=== PATIENT | male | born 1950 | race Caucasian/White ===

== ENCOUNTER 2016-12-18 12:25 | Inpatient (IN) | payer OTHER ==
[2016-12-18 13:19] LABS: BASOPHILS 0.4 % (0-2); EOSINOPHILS 2.8 % (0-7); HEMATOCRIT 36.2 % (42.0-54.0); HEMOGLOBIN 12.2 g/dL (13.5-17.5); IMMATURE GRANULOCYTES 1.1 % (0-5); LYMPHOCYTES 30.5 % (15-50); MCH 29.4 pg (26.0-34.0); MCHC 33.7 g/dL (31.0-37.0); MCV 87.2 fL (80.0-100.0); MEAN PLATELET VOLUME 9.3 fL (7.4-10.4); MONOCYTES 8.2 % (2-11); RBC 4.15 10x6/uL (4.20-6.10); RDW 14.3 % (11.5-14.5); WBC 7.4 10x3/uL (4.8-10.8)
[2016-12-18 13:22] LABS: PLATELET COUNT 190 10x3/uL (130-400)
[2016-12-18 13:37] LABS: ALBUMIN 4.2 g/dL (3.4-5.0); ALKALINE PHOSPHATASE 81 U/L (46-116); ALT (SGPT) 41 U/L (10-68); BILIRUBIN - TOTAL 0.32 mg/dL (0.2-1.3); CALC OSMOLALITY 267 mosm/kg (275-300); CALCIUM 9.7 mg/dL (8.5-10.1); CARBON DIOXIDE 25.9 mmol/L (21.0-32.0); CHLORIDE - SERUM 96 mmol/L (98-107); CREATININE - SERUM 1.3 mg/dL (0.6-1.3); GLUCOSE 104 mg/dL (74-106); PROTEIN - SERUM 7.9 g/dL (6.4-8.2); SODIUM 133 mmol/L (136-145); UREA NITROGEN 18 mg/dL (7-18); eGFR NON AFRICAN AMERICAN 59 mL/min (90-120)
[2016-12-18 13:56] LABS: CHOL - HDL RATIO 4.6 ratio (2.3-4.9); CHOLESTEROL, TOTAL 191 mg/dL (0-200); CREATINE KINASE 192 UL (21-232); HDL CHOLESTEROL 42 mg/dL (32-96); LDL CHOLESTEROL 105 mg/dL (0-100); LDL-HDL RATIO 2.5 ratio (1.5-3.5); TRIGLYCERIDE 223 mg/dL (30-200)
[2016-12-18 14:00] LABS: TROPONIN-I < 0.017 ng/mL (0.000-0.060)
[2016-12-18 16:13] LABS: CREATINE KINASE 366 UL (21-232); TROPONIN-I < 0.017 ng/mL (0.000-0.060)
[2016-12-18 16:14] LABS: CKMB 4.2 U/L (0.0-3.6)
[2016-12-18] MEDS ORDERED: PROAIR HFA8.5 GM INH (18:27)
[2016-12-18] MEDS ORDERED: NORVASC10 MG PO (18:28)
[2016-12-18] MEDS ORDERED: ASPIRIN325 MG PO (18:28)
[2016-12-18] MEDS ORDERED: LIPITOR40 MG PO (18:29)
[2016-12-18] MEDS ORDERED: COLACE100 MG PO (18:29)
[2016-12-18] MEDS ORDERED: MUCUS RELIEF400 MG PO (18:30)
[2016-12-18] MEDS ORDERED: TRICOR145 MG PO (18:30)
[2016-12-18] MEDS ORDERED: SYNTHROID50 MCG PO (18:31)
[2016-12-18] MEDS ORDERED: LITHIUM CARBON300 MG PO (18:32)
[2016-12-18] MEDS ORDERED: METOPROLOL TAR100 M1 PO (18:32)
[2016-12-18] MEDS ORDERED: OMEPRAZOLE20 M1 PO (18:33)
[2016-12-18] MEDS ORDERED: HYTRIN5 MG PO (18:33)
[2016-12-18] MEDS ORDERED: REMERON30 MG PO (18:33)
[2016-12-18] MEDS ORDERED: SPIRIVA18 MCG INH (18:34)
[2016-12-18] MEDS ORDERED: XANAX1 MG PO (18:35)
[2016-12-18 21:29] LABS: CKMB 3.7 U/L (0.0-3.6)
[2016-12-18 21:32] LABS: CREATINE KINASE 721 UL (21-232); TROPONIN-I 0.016 ng/mL (0.000-0.060)
[2016-12-19 04:38] LABS: CREATINE KINASE 706 UL (21-232)
[2016-12-19 04:40] LABS: TROPONIN-I < 0.017 ng/mL (0.000-0.060)
[2016-12-19] MEDS ORDERED: FUROSEMIDE20 MG PO (12:16)
[2016-12-19] MEDS ORDERED: MYSOLINE 50 MG50 MG PO (12:17)
[2016-12-19] MEDS ORDERED: COZAAR100 MG PO (12:17)
[2016-12-19] MEDS ORDERED: CO Q-10400 MG PO (12:18)
[2016-12-19] MEDS ORDERED: CENTRUM SILVER1 TA1 PO (12:19)
[2016-12-19 16:56] LABS: % SATURATION 16 % (15-55); IRON 65 ug/dl (35-150); TOTAL IRON BIND CAPACITY 396 ug/dl (260-445); UNSAT IRON BIND CAPACITY 331 ug/dl (150-375)
[2016-12-20 05:46] LABS: BASOPHILS 0.3 % (0-2); EOSINOPHILS 1.6 % (0-7); HEMOGLOBIN 10.8 g/dL (13.5-17.5); IMMATURE GRANULOCYTES 0.5 % (0-5); LYMPHOCYTES 25.7 % (15-50); MCHC 32.7 g/dL (31.0-37.0); MCV 88.7 fL (80.0-100.0); MEAN PLATELET VOLUME 8.6 fL (7.4-10.4); MONOCYTES 10.3 % (2-11); NEUTROPHILS 61.6 % (40-80); PLATELET COUNT 224 10x3/uL (130-400); RBC 3.72 10x6/uL (4.20-6.10); RDW 14.5 % (11.5-14.5); WBC 6.4 10x3/uL (4.8-10.8)
[2016-12-20 06:11] LABS: ANION GAP 14.4 mmol/L (8-16); CALCIUM 9.4 mg/dL (8.5-10.1); CARBON DIOXIDE 25.8 mmol/L (21.0-32.0); CREATININE - SERUM 1.5 mg/dL (0.6-1.3); MAGNESIUM - SERUM 1.9 mg/dL (1.8-2.4); PHOSPHOROUS 2.9 mg/dL (2.5-4.9); POTASSIUM - SERUM 3.2 mmol/L (3.5-5.1)
[2016-12-21 06:07] LABS: BASOPHILS 0.3 % (0-2); EOSINOPHILS 3.4 % (0-7); HEMATOCRIT 34.8 % (42.0-54.0); HEMOGLOBIN 11.4 g/dL (13.5-17.5); IMMATURE GRANULOCYTES 0.4 % (0-5); LYMPHOCYTES 28.7 % (15-50); MCH 29.4 pg (26.0-34.0); MCHC 32.8 g/dL (31.0-37.0); MCV 89.7 fL (80.0-100.0); MEAN PLATELET VOLUME 8.8 fL (7.4-10.4); MONOCYTES 8.2 % (2-11); PLATELET COUNT 231 10x3/uL (130-400); RBC 3.88 10x6/uL (4.20-6.10); RDW 14.5 % (11.5-14.5); WBC 7.7 10x3/uL (4.8-10.8)
[2016-12-21 06:23] LABS: ANION GAP 13.3 mmol/L (8-16); CALCIUM 9.6 mg/dL (8.5-10.1); CARBON DIOXIDE 26.2 mmol/L (21.0-32.0); CREATININE - SERUM 1.8 mg/dL (0.6-1.3); PHOSPHOROUS 3.6 mg/dL (2.5-4.9); POTASSIUM - SERUM 3.5 mmol/L (3.5-5.1)
[2016-12-21 09:17] LABS: FOLATE (FOLIC ACID) - SERUM 16.1 ng/mL (>3.0)
[2016-12-22 05:23] LABS: BASOPHILS 0.5 % (0-2); EOSINOPHILS 4.1 % (0-7); IMMATURE GRANULOCYTES 0.3 % (0-5); LYMPHOCYTES 26.4 % (15-50); MCH 29.7 pg (26.0-34.0); MCHC 33.3 g/dL (31.0-37.0); MCV 89.2 fL (80.0-100.0); MEAN PLATELET VOLUME 8.7 fL (7.4-10.4); NEUTROPHILS 60.7 % (40-80); PLATELET COUNT 206 10x3/uL (130-400); RDW 14.4 % (11.5-14.5); WBC 5.9 10x3/uL (4.8-10.8)
[2016-12-22 05:39] LABS: ANION GAP 7.5 mmol/L (8-16); CALCIUM 9.3 mg/dL (8.5-10.1); CARBON DIOXIDE 29.1 mmol/L (21.0-32.0); CREATININE - SERUM 1.7 mg/dL (0.6-1.3); PHOSPHOROUS 3.7 mg/dL (2.5-4.9); POTASSIUM - SERUM 3.6 mmol/L (3.5-5.1)
[2016-12-22] MEDS ORDERED: COZAAR50 MG PO (11:55)
[2016-12-22] MEDS ORDERED: TERAZOSIN HCL2 MG PO (11:55)
[2016-12-22] MEDS ORDERED: K-DUR20 MEQ PO (11:56)
== END 2016-12-22 16:00 | disposition home or self-care (01) | DRG 287 ==
LOC: D.ER 12:25 → D.M2 15:35
PROVIDERS: Emergency Medicine; ADMIT Family Medicine
PROC: B2111ZZ Fluoroscopy of Multiple Coronary Arteries using Low Osmolar Contrast (ICD-10-PCS; principal; 2016-12-19)
PROC: B2151ZZ Fluoroscopy of Left Heart using Low Osmolar Contrast (ICD-10-PCS; 2016-12-19)
PROC: 4A023N7 Measurement of Cardiac Sampling and Pressure, Left Heart, Percutaneous Approach (ICD-10-PCS; 2016-12-19)
DX: I25.110 Atherosclerotic heart disease of native coronary artery with unstable angina pectoris (principal); I16.0 Hypertensive urgency; E11.9 Type 2 diabetes mellitus without complications; F31.9 Bipolar disorder, unspecified; E03.9 Hypothyroidism, unspecified; D64.9 Anemia, unspecified; Z87.891 Personal history of nicotine dependence

== ENCOUNTER 2017-08-08 11:54 | Inpatient (IN) | payer MEDICARE ==
[~2017-08-08] VITALS: Ht 170.2 cm; Wt 94.3 kg
[2017-08-08] VITALS (11 sets, daily range): BP systolic 125–187; BP diastolic 48–104; BMI 33.6
[~2017-08-08 11:54] MED LIST: ASPIRIN325 MG PO; CENTRUM SILVER1 TA1 PO; CO Q-10400 MG PO; COLACE100 MG PO; COZAAR100 MG PO; COZAAR50 MG PO; FUROSEMIDE20 MG PO; HYTRIN5 MG PO; K-DUR20 MEQ PO; LIPITOR40 MG PO; LITHIUM CARBON300 MG PO; METOPROLOL TAR100 M1 PO; MUCUS RELIEF400 MG PO; MYSOLINE 50 MG50 MG PO; NORVASC10 MG PO; OMEPRAZOLE20 M1 PO; PROAIR HFA8.5 GM INH; REMERON30 MG PO; SPIRIVA18 MCG INH; SYNTHROID50 MCG PO; TERAZOSIN HCL2 MG PO; TRICOR145 MG PO; XANAX1 MG PO
[2017-08-08 13:20] LABS: BASOPHILS 0.3 % (0-2); EOSINOPHILS 2.3 % (0-7); HEMATOCRIT 32.9 % (42.0-54.0); HEMOGLOBIN 11.2 g/dL (13.5-17.5); IMMATURE GRANULOCYTES 0.8 % (0-5); LYMPHOCYTES 33.8 % (15-50); MCV 88.2 fL (80.0-100.0); MEAN PLATELET VOLUME 8.6 fL (7.4-10.4); MONOCYTES 8.8 % (2-11); PLATELET COUNT 223 10x3/uL (130-400); RBC 3.73 10x6/uL (4.20-6.10); RDW 13.8 % (11.5-14.5)
[2017-08-08 13:40] LABS: ALKALINE PHOSPHATASE 61 U/L (46-116); ALT (SGPT) 34 U/L (10-68); BILIRUBIN - TOTAL 0.35 mg/dL (0.2-1.3); CALC OSMOLALITY 280 mosm/kg (275-300); CALCIUM 9.5 mg/dL (8.5-10.1); CARBON DIOXIDE 26.9 mmol/L (21.0-32.0); CHLORIDE - SERUM 104 mmol/L (98-107); CREATININE - SERUM 1.6 mg/dL (0.6-1.3); GLUCOSE 100 mg/dL (74-106); POTASSIUM - SERUM 3.3 mmol/L (3.5-5.1); PROTEIN - SERUM 7.4 g/dL (6.4-8.2); SODIUM 139 mmol/L (136-145); UREA NITROGEN 22 mg/dL (7-18); eGFR NON AFRICAN AMERICAN 46 mL/min (90-120)
[2017-08-08 13:50] LABS: CKMB 1.6 U/L (0.0-3.6); CREATINE KINASE 104 UL (21-232); TROPONIN-I < 0.017 ng/mL (0.000-0.060)
--- NOTE | 2017-08-08 21:00 | NUR ---
PT ARRIVED, BP 189/99 NITRO INCREASED TO 4MCG/KG/MIN WILL REASSESS. PT C/O OF CHEST PAIN 8/10 RADIATING TO BACK BETWEEN SHOULDERS. EKG ADM, NO NEW FINDINGS SINUS TACK. MORPHINE PRN ADM FOR CHEST PAIN. STATES MINIMAL RELIEF. BP NOW 165/87 WILL CONTINUE TO MONITOR
--- NOTE | 2017-08-08 23:10 | NUR ---
FAMILY AT BEDSIDE. GIVEN UPDATE.
[2017-08-09] VITALS (54 sets, daily range): BP systolic 95–220; BP diastolic 43–117; Ht 170.2 cm; Wt 94.3 kg
--- NOTE | 2017-08-09 00:34 | NUR ---
ASSISTED WITH URINAL 350 CC ALEN URINE NOTED.
--- NOTE | 2017-08-09 01:00 | NUR ---
PT RESTING COMFORTABLY AT THIS TIME, DENIES ANY NEEDS OR WANTS, WILL CON'T TO MONITOR
--- NOTE | 2017-08-09 03:29 | NUR ---
REASSESSMENT COMPLETE PER FLOW SHEET. VSS. NONEW CHANGES. WILL CONTINUE TO MONITOR
[2017-08-09 04:49] LABS: BASOPHILS 0 % (0-2); EOSINOPHILS 0 % (0-7); HEMOGLOBIN 13.3 g/dL (13.5-17.5); IMMATURE GRANULOCYTES 0.9 % (0-5); LYMPHOCYTES 6.2 % (15-50); MCH 29.1 pg (26.0-34.0); MCHC 33.3 g/dL (31.0-37.0); MCV 87.5 fL (80.0-100.0); MEAN PLATELET VOLUME 8.8 fL (7.4-10.4); MONOCYTES 4.7 % (2-11); NEUTROPHILS 88.2 % (40-80); RDW 13.8 % (11.5-14.5)
[2017-08-09 04:56] LABS: PLATELET COUNT 393 10x3/uL (130-400); RBC 4.57 10x6/uL (4.20-6.10); WBC 13.8 10x3/uL (4.8-10.8)
[2017-08-09 05:15] LABS: ALKALINE PHOSPHATASE 58 U/L (46-116); BILIRUBIN - TOTAL 0.54 mg/dL (0.2-1.3); CALCIUM 8.2 mg/dL (8.5-10.1); CARBON DIOXIDE 24.1 mmol/L (21.0-32.0); CHLORIDE - SERUM 103 mmol/L (98-107); PROTEIN - SERUM 6.2 g/dL (6.4-8.2); SODIUM 134 mmol/L (136-145); UREA NITROGEN 26 mg/dL (7-18)
[2017-08-09 05:20] LABS: ALBUMIN 2.3 g/dL (3.4-5.0); ALT (SGPT) 52 U/L (10-68); CALC OSMOLALITY 277 mosm/kg (275-300); CREATININE - SERUM 0.8 mg/dL (0.6-1.3); GLUCOSE 184 mg/dL (74-106); POTASSIUM - SERUM 4.9 mmol/L (3.5-5.1); eGFR NON AFRICAN AMERICAN > 90 mL/min (90-120)
--- NOTE | 2017-08-09 07:00 | NUR ---
REPORT RECEIVED FROM OFF GOING RN. SEE ASSESMENT IN FLOW SHEET. PT VERY TALKATIVE AND FIDGITY. SPB 170-180. ON NITROPINE PER ORDRES. DENIES PAIN AT THIS TIME. DESCRIBED PAIN LAST NIGHT PRESSURE ON HIS CHEST. DENIES NEEDS AT THIS TIME. CALL LIGHT IN REACH. WILL CONT POC
--- NOTE | 2017-08-09 07:24 | NUR ---
SPOKE WITH DR MIRZA. HE STATED ITS OK TO STOP THE VASOPRESSIN IF IT IS OK WITH IR.
--- NOTE | 2017-08-09 09:00 | NUR ---
DR RAMOS STATED ONCE PT IS OFF NIPRIDE AND BP IS STABLE ON PO MEDS, OK TO TRANSFER TO FLOOR.
--- NOTE | 2017-08-09 10:19 | NUR ---
WENT OVER ALLERGIES BEFORE MED PASS, PT ALLERGIC TO [facility]. DR RAMOS NOTIFIED AND [facility] DC. WHILE TALKING WITH PT, PT WAS VERY TALKATIVE AND FIDGITY. STATED HE WAS A VERY ANXIOUS PERSON ESPICIALLY AT HIS HOUSE. HE SPOKE ABOUT HIS TIME IN [place] WHILE HE WAS IN THE AND HE TALKED ABOUT HOW HE WATCHED PEOPLE BE KILLED WHILE HE WAS OVER THERE IN A [place]. HE STATES HE SEES A PHYCHIATRIST BUT HE DOES NOT REMEMBER WHAT THEIR NAME IS. BEFORE MEDPASS, HIS BP WAS 154/98. AFTER CONVERSATION AND PO MED WHERE TAKEN, HIS BP RISED TO 179/110. PRN XANAX GIVEN AND HIS ROUTINE BP MEDICATION WAS ADMINISTERED. HIS SISTER WAS AT BEDSIDE THIS WHOLE TIME. ONCE SISTER LEFT, HE STATED THAT SOMETIMES HIS BP RISES BECAUSE "MY SISTER CARES FOR ME ALOT. BUT SOMETIMES SHE IS OVERBEARING AND MAKES MY BP RISE.". PT REMAINS ON NIPRIDE PER ORDRES. WILL TITRATE DOWN PER ORDERS.
--- NOTE | 2017-08-09 10:48 | NUR ---
PT IN BED RESTING. NO FAMILY AT BEDSIDE. PT BREATHING NORMALLY AND UNLABORED. BP 136/94. NITROPINE TITRATED OFF PER ORDRES. WILL CONT POC
--- NOTE | 2017-08-09 11:39 | NUR ---
NITRPINE REMAINS OFF. BP 184/100. PRN PO HYDRALAZINE GIVEN.
--- NOTE | 2017-08-09 12:59 | NUR ---
UA COLLECTED. SENT TO LAB. SISTER AT BED SIDE. NO C/O ANXIETY AT THIS TIME.
--- NOTE | 2017-08-09 13:10 | NUR ---
LEFT BEDSIDE. ATTEMPTED TO GIVE PT NEW LUNCH TRAY. PT REFUSED.
--- NOTE | 2017-08-09 13:15 | NUR ---
SISTER AT BED SIDE. REMAINS OFF NITROPIME. BP 165/79
--- NOTE | 2017-08-09 13:35 | NUR ---
AT BEDSIDE FEEDING PT MASHED POTATOES FROM [employer]
[2017-08-09 14:09] LABS: APPEARANCE CLEAR (CLEAR); BACTERIA FEW /hpf (NONE SEEN); BILIRUBIN NEGATIVE (NEGATIVE); COLOR YELLOW (YELLOW); EPITHELIAL CELLS RARE /hpf (0-5); GLUCOSE NEGATIVE (NEGATIVE); KETONE NEGATIVE (NEGATIVE); NITRITE NEGATIVE (NEGATIVE); PROTEIN 1+ mg/dL (NEGATIVE); RED CELLS - URINE RARE /hpf (0-5); SPERMATOZOA PRESENT /hpf (NONE SEEN); UROBILINOGEN NORMAL (NORMAL); WHITE CELLS - URINE RARE /hpf (0-5)
--- NOTE | 2017-08-09 14:35 | NUR ---
BP 168/88. PT RESTING IN BED WITH EYES CLOSED WITH NO S/SX OF DISTRESS/DISCOMFORT. BREATHING NORMAL AND UNLABORED. NO FAMILY AT BED SIDE
--- NOTE | 2017-08-09 16:30 | NUR ---
BP WAS 160/78. DR ADAN ROUNDED AND WAS AT PT'S BEDSIDE WHENEVER HIS BP JUMPED TO 189/110. HYDRALAZINE GIVEN. DR ADAN ADJUSTED BP MEDICATION.
--- NOTE | 2017-08-09 19:19 | NUR ---
REPORT RECIEVED. ASSESSMENT COMPLETE PER FLOW SHEET. VSS. ASSISTED WITH URINAL 500 CC ALEN URINE VOID NOTED. DENIES FURTHER NEEDS.W ILL CONTINUE TO MONITOR
--- NOTE | 2017-08-09 23:10 | NUR ---
NO NEW CHANGES AT THIS TIME. VSS. PT SLEEPING COMFORTABLY WILL CONTINUE TO MONITOR
[2017-08-10] VITALS (8 sets, daily range): BP systolic 150–214; BP diastolic 87–119
[2017-08-10 05:42] LABS: BASOPHILS 0.3 % (0-2); EOSINOPHILS 2.1 % (0-7); IMMATURE GRANULOCYTES 0.5 % (0-5); LYMPHOCYTES 26.8 % (15-50); MCH 29.9 pg (26.0-34.0); MCHC 33.2 g/dL (31.0-37.0); MEAN PLATELET VOLUME 8.8 fL (7.4-10.4); MONOCYTES 9.5 % (2-11); NEUTROPHILS 60.8 % (40-80); RDW 14.3 % (11.5-14.5)
[2017-08-10 05:45] LABS: HEMOGLOBIN 10.3 g/dL (13.5-17.5); RBC 3.44 10x6/uL (4.20-6.10); WBC 6.1 10x3/uL (4.8-10.8)
[2017-08-10 05:46] LABS: MCV 90.1 fL (80.0-100.0); PLATELET COUNT 219 10x3/uL (130-400)
[2017-08-10 06:35] LABS: ANION GAP 12.5 mmol/L (8-16); CALCIUM 9.7 mg/dL (8.5-10.1); CARBON DIOXIDE 25.8 mmol/L (21.0-32.0)
[2017-08-10 06:36] LABS: CREATININE - SERUM 1.8 mg/dL (0.6-1.3); POTASSIUM - SERUM 3.3 mmol/L (3.5-5.1)
--- NOTE | 2017-08-10 07:15 | NUR ---
PT ALERT AND OREINTED VSS, DENIES PAIN, R WRIST PIV SALINE LOCK, USES URINAL, TURNS AND REPOSITIONS SELF, SEE SHIFT ASSESSMENT
--- NOTE | 2017-08-10 09:17 | NUR ---
TOOK AM MEDS WITHOUT DIFFICULTY, PRN XANAX FOR ANXIETY WAS EFFECIVE
--- NOTE | 2017-08-10 11:07 | NUR ---
PT DENIES PAIN AND ALL NEEDS, BP SYSTOLIC IN 150-160S, ABLE TO REPOSITION SELF, CALL LIGHT AND FLUIDS WITHIN REACH
--- NOTE | 2017-08-10 11:56 | NUR ---
REPORT CALLED TO TASIA PT WILL TRANSFER TO ROOM 3949
--- NOTE | 2017-08-10 12:31 | NUR ---
PT TRANSFERRED TO ROOM 2132
--- NOTE | 2017-08-10 12:59 | NUR ---
PT ARRIVED TO UNIT VIA WHEELCHAIR BY ICU NURSE. THIS NURSE PREVIOUSLY RECEIVED REPORT FROM DELIA IN ICU. PT IS ALERT AND ORIENTED. ON 02 AT 2L VIA NC. IV SEEN TO RIGHT FOREARM AREA THAT IS CURRENTLY SALINE LOCKED. RUL IS CLEAR ON AUSCULTATION. [place] HAS SLIGHT EX WHEEZE. BILATERAL LL ARE CLEAR. PT STATES HE GETS SOB ON EXERTION AT TIMES. WILL DO QUICKSTART PER POLICY. SISTER IS AT BEDSIDE. WILL CONTINUE TO MONITOR.
--- NOTE | 2017-08-10 16:24 | NUR ---
DR. ROSA ON UNIT. INFORMED HER OF PTS LATEST B/P. NEW ORDERS RECEIVED.
--- NOTE | 2017-08-10 18:18 | NUR ---
PT IS CURRENTLY SITTING UP IN BED WITH EYES OPEN RESTING. SISTER IS AT BEDSIDE. PT DENIES ANY NEED AT THIS TIME. WILL CONTINUE TO MONITOR.
[2017-08-11 00:36] VITALS: BP 180/67
--- NOTE | 2017-08-11 01:16 | NUR ---
PT RESTING WITH EYES CLOSED. RESP EVEN AND REGULAR. SR UP X2, CALL LIGHT WITHIN REACH.
[2017-08-11 05:11] VITALS: BP 187/84
--- NOTE | 2017-08-11 06:44 | NUR ---
AM ROUNDING- RECEIVED REPORT FROM TRUCK MANAGER NURSE EUSEBIA. PT IS CURRENTLY SITTING UP IN BED WITH EYES OPEN RESTING. ON 02 AT 2L VIA NC. IV SEEN TO RIGHT WRIST THAT IS CURRENTLY SALINE LOCKED. NO NEED AT THIS CURRENT TIME. WILL CONTINUE TO MONITOR AND CONTINUE WITH PLAN OF CARE.
[2017-08-11 09:19] VITALS: BP 182/94
--- NOTE | 2017-08-11 09:28 | NUR ---
FRANCISCO JAVIER LOMAX CAME TO INFORM ME THAT PTS BLOOD PRESSURE IS 215/107. THIS NURSE GOES TO CHECK ON PT. PT IS SITTING UP IN BED WITH EYES OPEN RESTING. PT ISN'T C/O ANY DISTRESS. PT GIVEN PRN APRESOLINE ORDERED. BLOOD PRESSURE RECHECKED WHILE IN ROOM AND IS NOW 179/81. WILL CONTINUE TO MONITOR.
[2017-08-11 11:18] LABS: BASOPHILS 0.3 % (0-2); EOSINOPHILS 3.7 % (0-7); HEMATOCRIT 31.6 % (42.0-54.0); HEMOGLOBIN 10.1 g/dL (13.5-17.5); IMMATURE GRANULOCYTES 0.5 % (0-5); LYMPHOCYTES 26.4 % (15-50); MCH 29.6 pg (26.0-34.0); MEAN PLATELET VOLUME 9.1 fL (7.4-10.4); MONOCYTES 9.4 % (2-11); NEUTROPHILS 59.7 % (40-80); RBC 3.41 10x6/uL (4.20-6.10); RDW 14.4 % (11.5-14.5); WBC 6.3 10x3/uL (4.8-10.8)
[2017-08-11 11:22] LABS: MCV 92.7 fL (80.0-100.0); PLATELET COUNT 167 10x3/uL (130-400)
[2017-08-11 11:54] LABS: ALBUMIN 3.6 g/dL (3.4-5.0); ANION GAP 10.4 mmol/L (8-16); BILIRUBIN - TOTAL 0.39 mg/dL (0.2-1.3); CALCIUM 9.4 mg/dL (8.5-10.1); CARBON DIOXIDE 26.9 mmol/L (21.0-32.0); CREATININE - SERUM 1.8 mg/dL (0.6-1.3); MAGNESIUM - SERUM 2.3 mg/dL (1.8-2.4); PHOSPHOROUS 3.5 mg/dL (2.5-4.9)
[2017-08-11 11:56] LABS: POTASSIUM - SERUM 4.3 mmol/L (3.5-5.1)
[2017-08-11 12:05] LABS: % SATURATION 16 % (15-55); IRON 56 ug/dl (35-150); TOTAL IRON BIND CAPACITY 346 ug/dl (260-445); UNSAT IRON BIND CAPACITY 290 ug/dl (150-375)
[2017-08-11 12:08] VITALS: BP 151/72
--- NOTE | 2017-08-11 14:50 | NUR ---
SPOKE WITH PT AND FAMILY AT BEDSIDE REGARDING VISIT THEY HAD FROM DR. ADAN AND MARCELO DUPREE. PT AND FAMILY ARE VERY UPSET DUE TO THE FACT THAT PT AND FAMILY FEEL LIKE DR. ADAN WAS NOT LISTENING TO THEM AND THEIR CONCERNS FOR PTS BLOOD PRESSURE STAYING HIGH. I DID SPEAK TO DR. ADAN WHILE IN ROOM MAKING ROUNDS AND CLARIFIED TO DR. ADAN THAT FAMILY IS WANTING TO GET PT ON THE RIGHT MEDICAION TO HELP CONTROL THE B/P. PT AND FAMILY ARE UPSET. PT DOES NOT WANT DR. ADAN BACK IN HIS ROOM. PT STATES HE LIKES DR. ORR AND BELIEVES HE CARES.
[2017-08-11 17:07] VITALS: BP 156/76
--- NOTE | 2017-08-11 17:23 | NUR ---
PT IS CURRENTLY SITTING UP IN CHAIR. SISTER AND SISTERS BOYFRIEND JUST GOT BACK INTO ROOM. NO NEED AT THIS CURRENT TIME. WILL CONTINUE TO MONITOR.
--- NOTE | 2017-08-11 19:49 | NUR ---
PATIENT IS INTENTLY REQUESTING XANEX WITH HIS NIGHT TIME MEDICATIONS. REPORTS THAT HE NEEDS IT TO SLEEP. FAMILY AT BEDSIDE, DENIES ANY PAIN AT THIS TIME. BED LOW, CALL LIGHT IN REACH.
[2017-08-11 21:08] VITALS: BP 167/90
[2017-08-12 01:27] VITALS: BP 139/75
[2017-08-12 06:51] VITALS: BP 154/73
--- NOTE | 2017-08-12 08:15 | NUR ---
AM ROUNDS COMPLETED INTRODUCED MYSELF TO PT PRIMARY RN FOR TODAYS SHIFT. PT A&O SITTING UP IN BED RESTING QUIETLY. PT IS HOPING TO BE DISCHARGED TODAY AND STATES HIS PROBLEMS HAVE RESOLVED. BP STABLE OVERNIGHT. WILL CPOC.
[2017-08-12 08:24] VITALS: BP 161/91
--- NOTE | 2017-08-12 11:17 | NUR ---
FSBS 123 NO ACTION REQUIRED PER SS INSULIN. PT SITTING UP IN BEDSIDE CHAIR AND IS WAITING ON HIS DOCTOR TO ROUND AND IS HOPING TO BE DISCHARGED TODAY. HTN SEEMS TO NOW BE CONTROLLED OVERNIGHT READINGS WERE CONTROLLED AND CURRENT BP IS 161/91 WILL DISCUSS WITH PRIMARY AND SEE ABOUT DISCHARGE.
[2017-08-12 12:11] VITALS: BP 145/75
--- NOTE | 2017-08-12 13:43 | NUR ---
PAGED ABOUT DISCHARGE PT IS ANXIOUS TO LEAVE AND GET HIS NEW MEDICATIONS FROM PHARMACY. PRIMARY IS HERE AND WILL PUT IN ORDERS. NO FURTHER NEEDS AT THIS TIME.
[2017-08-12] MEDS ORDERED: COZAAR50 MG PO (13:44)
[2017-08-12] MEDS ORDERED: CATAPRES-T1 PATCH.WK TRANSDERM (13:47)
[2017-08-12] MEDS ORDERED: HYDRALAZINE HCL50 MG PO (13:48)
[2017-08-12 17:02] VITALS: BP 153/75
--- NOTE | 2017-08-12 18:36 | NUR ---
STILL AWAITING PTS DISCHARGE PAPERS. PT EXTREMELY CONCERNED ABOUT NOT BEING ABLE TO MEDIA MANAGER HIS HTN MEDS UNTIL THE AM R/T HIS PHARMACY BEING CLOSED. WILL PROVIDE PT WITH HIS NIGHT BP EARLY AND GIVE THEM BEFORE HE IS DISCHARGE. PT VERBALIZED UNDERSTANDING AND VOICED THANKS. NO FURTHER NEEDS AT THIS TIME. WILL PASS ON IN SHIFT REPORT.
--- NOTE | 2017-08-12 19:20 | NUR ---
DISCHARGE TEACHING PROVIDED PAPERS SIGNED. MEDICATIONS REVIEWED IN GREAT DETAIL PT AND CAREGIVER HAVE BEEN VERY ANXIOUS ABOUT NEW MEDICATIONS. NIGHT MEDICATIONS GIVEN EARLY PT WOULD NOT BE ABLE TO VEHICLE OPERATOR TECHNICIAN OVERNIGHT R/T [facility] BEING CLOSED AND NIGHTSHIFT NURSE REFUSED TO GIVE MEDICATIONS THAT EARLY. PT VOICED GREAT APPRIECIATION AND NOW FEEL SAFE AND READY FOR DISCHARGE. BELONGINGS COLLECTED AND PT WILL BE WHEELED DOWN NOW. NO FURTHER NEEDS.
[2017-08-15 14:20] LABS: RENIN ACTIVITY - PLASMA 0.19 ng/mL/hr (0.167-5.380)
[2017-08-16 05:15] LABS: ALDOSTERONE 4.6 ng/dL (0.0-30.0)
== END 2017-08-12 19:39 | disposition home or self-care (01) | DRG 305 ==
LOC: D.ER 11:54 → D.ICU 19:49 → D.M2 08-10 12:32
PROVIDERS: Emergency Medicine; Internal Medicine Nephrology; ADMIT Family Medicine
DX: I16.0 Hypertensive urgency (principal); E11.9 Type 2 diabetes mellitus without complications; Z79.4 Long term (current) use of insulin; F41.9 Anxiety disorder, unspecified; F31.9 Bipolar disorder, unspecified; R07.9 Chest pain, unspecified; R51 Headache; D64.9 Anemia, unspecified; E11.22 Type 2 diabetes mellitus with diabetic chronic kidney disease; I12.9 Hypertensive chronic kidney disease with stage 1 through stage 4 chronic kidney disease, or unspecified chronic kidney disease; N18.9 Chronic kidney disease, unspecified; N28.9 Disorder of kidney and ureter, unspecified; E03.9 Hypothyroidism, unspecified

== ENCOUNTER 2018-01-09 07:10 | Day surgery (SDC) | payer MEDICARE ==
[2018-01-08 14:04] LABS: HEMATOCRIT 33.4 % (42.0-54.0); HEMOGLOBIN 11.1 g/dL (13.5-17.5); MCH 28.8 pg (26.0-34.0); MCHC 33.2 g/dL (31.0-37.0); MCV 86.5 fL (80.0-100.0); MEAN PLATELET VOLUME 8.3 fL (7.4-10.4); RBC 3.86 10x6/uL (4.20-6.10); RDW 14.8 % (11.5-14.5); WBC 6.6 10x3/uL (4.8-10.8)
[2018-01-08 14:15] LABS: ANION GAP 14.9 mmol/L (8-16); CALCIUM 9.9 mg/dL (8.5-10.1); CARBON DIOXIDE 28.4 mmol/L (21.0-32.0); CREATININE - SERUM 1.8 mg/dL (0.6-1.3); POTASSIUM - SERUM 3.3 mmol/L (3.5-5.1)
[~2018-01-09] VITALS: Ht 170.2 cm; Wt 103.0 kg
--- NOTE | ~2018-01-09 | OP ---
PATIENT NAME: SAMIRA GARCIA MEDICAL RECORD: [id number] :50 [facility] DATE: SURGEON: ZELDA MESA MD DATE OF OPERATION: 01/09/2018 SURGEON: Zelda Mesa MD ANESTHESIA: MAC by Dr. Osvaldo Mcintyre. PREOPERATIVE DIAGNOSIS: Elevated PSA 8.87. PROCEDURE: Transrectal ultrasound and prostate biopsy. FINDINGS: A 47 gram prostate with intraprostatic stones. No hypoechoic areas. ESTIMATED BLOOD LOSS: Minimal. CLINICAL HISTORY: This is a 67-year-old male referred by Dr. Mcclure for a chief complaint of an elevated PSA. His PSA last year had been normal. The PSA on 11/01/2017 was 5.91. A month later the PSA was repeated and on 12/07/2017 it was 8.87 with 22.8% free PSA. He has significant voiding symptoms in terms of urinary frequency, but he is using a diuretic. He has no family history of prostate cancer. On rectal examination, he has approximately 40 gram prostate, which is benign feeling. He comes today to have a transrectal ultrasound and prostate biopsy. He was covered with ampicillin and sulbactam 3 grams IV receptionist secretary to the OR. DESCRIPTION OF PROCEDURE: The patient was given IV sedation. He was placed in the dorsal lithotomy position and prepped. The ultrasound probe was placed into the rectum and prostate size measurements were obtained. We estimated the prostate size to be 47 grams. Sextant biopsies were then obtained with at least 3 cores from each sextant. Once all the specimens were obtained, the procedure was terminated. The patient was awakened and brought to recovery room. I will see him in followup next week to review the pathology results with him. TRANSINT:[id number] Voice Confirmation ID: [id number] DOCUMENT ID: [id number] ZELDA MESA MD at 0741 CC: [id number] DICTATION DATE: 01/09/181214 APPEALS BOARD REFEREE: 01/09/18 1558 [facility] 01/09/18 [place] [id number]
[~2018-01-09 07:10] MED LIST changes: +CATAPRES-T1 PATCH.WK TRANSDERM; -FUROSEMIDE20 MG PO; +HYDRALAZINE HCL50 MG PO; +HYTRIN1 MG PO; +LASIX40 MG PO; +STOOL SOFTENER240 MG PO; +XANAX0.5 MG PO; -XANAX1 MG PO
[2018-01-09] MEDS ORDERED: LEVAQUIN500 MG PO (08:22)
[2018-01-09 08:25] VITALS: BP 161/70; Ht 170.2 cm; Wt 103.0 kg
== END 2018-01-09 13:30 | disposition home or self-care (01) ==
LOC: D.OPS 07:10 → D.PAN 09:00 → D.OPS 09:00
PROVIDERS: Anesthesiology
DX: R97.20 Elevated prostate specific antigen [PSA] (principal); Z87.891 Personal history of nicotine dependence; I25.10 Atherosclerotic heart disease of native coronary artery without angina pectoris; I10 Essential (primary) hypertension; E11.9 Type 2 diabetes mellitus without complications; E03.9 Hypothyroidism, unspecified; J44.9 Chronic obstructive pulmonary disease, unspecified; K21.9 Gastro-esophageal reflux disease without esophagitis; Z01.812 Encounter for preprocedural laboratory examination

== ENCOUNTER 2019-08-31 02:39 | Inpatient (IN) | payer MEDICARE ==
[2019-08-31] VITALS (7 sets, daily range): BP systolic 134–177; BP diastolic 53–70; BMI 32.5
[~2019-08-31] VITALS: Ht 170.2 cm; Wt 97.0 kg
[~2019-08-31 02:39] MED LIST changes: +LEVAQUIN500 MG PO
[2019-08-31] MEDS ORDERED: B12 INJECTION (02:46)
[2019-08-31] MEDS ORDERED: CARDURA4 MG PO (02:47)
[2019-08-31] MEDS ORDERED: FERROUS SULFAT325 MG PO (02:48)
[2019-08-31] MEDS ORDERED: HYDRALAZINE HC100 MG PO (02:49)
[2019-08-31] MEDS ORDERED: ISOSORBIDE MONO20 MG PO (02:49)
[2019-08-31] MEDS ORDERED: KRILL OIL 1,001 EAC1 PO (02:49)
[2019-08-31] MEDS ORDERED: UNITHROID50 MCG PO (02:50)
[2019-08-31] MEDS ORDERED: REMERON30 MG PO (02:51)
[2019-08-31] MEDS ORDERED: LONITEN2.5 MG PO (02:51)
[2019-08-31] MEDS ORDERED: BENICAR40 MG PO (02:52)
[2019-08-31] MEDS ORDERED: OMEPRAZOLE20 M1 PO (02:52)
[2019-08-31] MEDS ORDERED: SPIRIVA RESPIMAT4 G1 INH (02:53)
[2019-08-31] MEDS ORDERED: MYSOLINE 50 MG50 MG PO (02:53)
[2019-08-31] MEDS ORDERED: ALDACTONE25 MG PO (02:53)
--- NOTE | 2019-08-31 04:00 | NUR ---
PT UP TO BATHROOM, UA SENT TO LAB, PT ABLE TO WALK WITH CANE AND ASSISTANCE TO BATHROOM .PT SISTER AT BEDSIDE.
[2019-08-31 04:50] LABS: APPEARANCE CLEAR (CLEAR); BILIRUBIN NEGATIVE (NEGATIVE); COLOR YELLOW (YELLOW); GLUCOSE NEGATIVE (NEGATIVE); KETONE NEGATIVE (NEGATIVE); NITRITE NEGATIVE (NEGATIVE); PROTEIN NEGATIVE (NEGATIVE); UROBILINOGEN NORMAL (NORMAL)
[2019-08-31 04:56] LABS: BASOPHILS 0.3 % (0-2); EOSINOPHILS 2.8 % (0-7); HEMATOCRIT 26.1 % (42.0-54.0); HEMOGLOBIN 8.3 g/dL (13.5-17.5); IMMATURE GRANULOCYTES 0.9 % (0-5); LYMPHOCYTES 14.8 % (15-50); MCH 30.3 pg (26.0-34.0); MCHC 31.8 g/dL (31.0-37.0); MCV 95.3 fL (80.0-100.0); MEAN PLATELET VOLUME 8.1 fL (7.4-10.4); MONOCYTES 8.3 % (2-11); NEUTROPHILS 72.9 % (40-80); RBC 2.74 10x6/uL (4.20-6.10); RDW 13.5 % (11.5-14.5); WBC 10.7 10x3/uL (4.8-10.8)
[2019-08-31 05:00] LABS: PLATELET COUNT 334 10x3/uL (130-400)
[2019-08-31 05:08] LABS: ANION GAP 11.5 mmol/L (8-16); CALCIUM 9.6 mg/dL (8.5-10.1); CARBON DIOXIDE 26.1 mmol/L (21.0-32.0); CREATININE - SERUM 4.4 mg/dL (0.6-1.3); POTASSIUM - SERUM 4.6 mmol/L (3.5-5.1)
[2019-08-31 05:13] LABS: ALBUMIN 3.6 g/dL (3.4-5.0); BILIRUBIN - TOTAL 0.14 mg/dL (0.2-1.3); PROTEIN - SERUM 6.9 g/dL (6.4-8.2)
--- NOTE | 2019-08-31 08:42 | NUR ---
PT ARRIVED IN ROOM VIA BED, HE IS ALERT AND ORIENTED, HARD OF HEARING. SISTER AT BEDSIDE IS PRIMARY CAREGIVER. HE HAS NO COMPLAINTS, ANSWERED ALL QUESTIONS TO THE BEST OF MY ABILITY. CL IN REACH, SRX2.
--- NOTE | 2019-08-31 10:08 | NUR ---
ADMINISTERED MORNING MEDS, PT TAKES PILL SEVERAL AT A TIME, LARGE ONES ALONE. NO ISSUES WITH SWALLOWING NOTED. NO COMPLAINTS/CONCERNS, ALL QUESTIONS ANSWERED. CL INR EACH, SRX2.
[2019-08-31 10:20] LABS: ANION GAP 9.3 mmol/L (8-16); CALCIUM 9.2 mg/dL (8.5-10.1); CARBON DIOXIDE 24.6 mmol/L (21.0-32.0); CREATININE - SERUM 4.4 mg/dL (0.6-1.3); POTASSIUM - SERUM 4.9 mmol/L (3.5-5.1)
--- NOTE | 2019-08-31 10:29 | NUR ---
PT GETS UP WITH ASSIST, DOES WELL BUT HAS TO HAVE MOD ASSIST.
[2019-08-31 14:12] LABS: APTT 23.9 SECONDS (22.8-39.4); INR 1.08 (0.85-1.17); PROTIME 13.5 SECONDS (11.6-15.0)
[2019-08-31 14:21] LABS: % SATURATION 12 % (15-55); IRON 37 ug/dl (35-150); TOTAL IRON BIND CAPACITY 295 ug/dl (260-445); UNSAT IRON BIND CAPACITY 258 ug/dl (150-375)
[2019-08-31 14:53] LABS: MAGNESIUM - SERUM 2.4 mg/dL (1.8-2.4)
--- NOTE | 2019-08-31 15:05 | NUR ---
PT HAS BEEN AWAKE AND ORIENTED, SISTER AND BROTHER IN LAW AT BEDSIDE. THEY HAVE ASKED MANY QUESTIONS, ANSWERED TO THE BEST OF MY ABILITY. STATES HE DOESN'T FEEL TOO TERRIBLE RIGHT NOW. LC IN REACH,SRX2
--- NOTE | 2019-08-31 18:49 | NUR ---
PT AWAKE AND ORIENTED, ASSISTED WITH PULLING HI UP IN BED. C/O DIFFICULTY BREATHING BECAUSE HE WAS DOWN TOO FAR. NOW COMFORTABLE AND BREATHING WITHOUT DIFFICULTY. SISTER AND BROTHER IN LAW AT BEDSIDE, BROUGHT PIZZA FOR THEM TO EAT. NO COMPLAITNS/CONCERNS AT THIS TIME, ALL UQESTIONS ANSWERED, DR. TAY AT BEDSIDE ANSWERING QUESTIONS. CL IN REACH, SRX2.
--- NOTE | 2019-08-31 19:17 | NUR ---
RECEIVED UP IN BED WITH EYES OPENA ND TV ON. FAMILY AT BEDSIDE. ALERT AND ORIENTED X4. UP WITH ASSIST TO USE URINAL. IV TO RIGHT SL.. DENIES ANY NEEDS AT THIS TIME.
[2019-09-01] VITALS: BP 143/55
[2019-09-01 06:02] LABS: ANION GAP 12.7 mmol/L (8-16); CALCIUM 9.1 mg/dL (8.5-10.1); CARBON DIOXIDE 22.9 mmol/L (21.0-32.0); CREATININE - SERUM 4.2 mg/dL (0.6-1.3); MAGNESIUM - SERUM 2.5 mg/dL (1.8-2.4); PHOSPHOROUS 3.6 mg/dL (2.5-4.9); POTASSIUM - SERUM 4.6 mmol/L (3.5-5.1); VANCOMYCIN - RANDOM 11.5 ug/mL (10.0-20.0)
[2019-09-01 06:09] LABS: BASOPHILS 0.2 % (0-2); EOSINOPHILS 0.9 % (0-7); HEMATOCRIT 22.7 % (42.0-54.0); IMMATURE GRANULOCYTES 0.3 % (0-5); MCH 30.3 pg (26.0-34.0); MCHC 31.7 g/dL (31.0-37.0); MCV 95.4 fL (80.0-100.0); MEAN PLATELET VOLUME 8.4 fL (7.4-10.4); MONOCYTES 8.7 % (2-11); NEUTROPHILS 83.9 % (40-80); PLATELET COUNT 313 10x3/uL (130-400); RBC 2.38 10x6/uL (4.20-6.10); RDW 13.7 % (11.5-14.5)
[2019-09-01 06:10] LABS: HEMOGLOBIN 7.2 g/dL (13.5-17.5)
[2019-09-01 08:00] VITALS: BP 164/75
--- NOTE | 2019-09-01 11:25 | NUR ---
FIRST UNIT PRBC STARTED, INFUSED FOR 45 MINUTES AND STARTED HAVING BLOOD LEAKING AROUND IV INSERTION SITE. IV DC'D WITH CATH TIP INTACT AND RESTARTED IN LEFT AC WITH 20G X 1 ATTEMPT. PT TOLERATED WELL. BLOOD NOW INFUSING WELL WITH NO DIFFICULTY. BP ELEVATED AT 183/104 AND CONTACTED ANTHONY PIEDRA APRN WITH ORDER RECEIVED FOR CLONIDINE 0.1MG PO Q 4 HRS PRN. FIRST DOSE GIVEN.
--- NOTE | 2019-09-01 11:42 | NUR ---
Rehab Note- Acute Inpatient Rehab prescreen order received. The patient is a good inpatient rehab candidate when medically stable and if in agreeance with [facility] Acute Inpatient Rehab. Will follow at this time. Thank you for this referral! Cesia Russo RN Clinical Liaison, [facility] Rehab
[2019-09-01 12:00] VITALS: BP 133/76
[2019-09-01 14:55] VITALS: Ht 170.2 cm; Wt 97.0 kg
--- NOTE | 2019-09-01 15:25 | NUR ---
2ND UNIT PRBCS STARTED WITH STABLE V/S OBTAINED. IV SITE PATENT WITHOUT ANY REDNESS OR EDEMA NOTED. PT WITHOUT COMPLAINTS OR REQUESTS.
[2019-09-01 16:00] VITALS: BP 166/78
--- NOTE | 2019-09-01 19:00 | NUR ---
EVENING ROUNDS COMPLETE, PT SITTING UP IN BED, FAMILY AT BEDSIDE. NO SIGNS OF DISTRESS. AAOX4. PT DENIES ANY NEEDS AT THIS TIME. PAIN 7/10, PRN TYLENOL GIVEN. CL IN REACH, BED IN LOWEST POSITION.
[2019-09-01 20:00] VITALS: BP 173/89
[2019-09-02] VITALS: BP 149/62
[2019-09-02 04:29] VITALS: BP 169/69
[2019-09-02 06:51] LABS: ANION GAP 14.8 mmol/L (8-16); CALCIUM 9.5 mg/dL (8.5-10.1); CARBON DIOXIDE 23.6 mmol/L (21.0-32.0); CREATININE - SERUM 4.5 mg/dL (0.6-1.3); MAGNESIUM - SERUM 2.6 mg/dL (1.8-2.4); POTASSIUM - SERUM 4.4 mmol/L (3.5-5.1); VANCOMYCIN - RANDOM 8.6 ug/mL (10.0-20.0)
[2019-09-02 06:54] LABS: BASOPHILS 0.3 % (0-2); EOSINOPHILS 1.5 % (0-7); IMMATURE GRANULOCYTES 0.5 % (0-5); LYMPHOCYTES 9.6 % (15-50); MCHC 31.6 g/dL (31.0-37.0); MCV 94.8 fL (80.0-100.0); MEAN PLATELET VOLUME 8.6 fL (7.4-10.4); MONOCYTES 9.2 % (2-11); NEUTROPHILS 78.9 % (40-80); RDW 14.6 % (11.5-14.5); WBC 7.5 10x3/uL (4.8-10.8)
[2019-09-02 06:57] LABS: HEMATOCRIT 27.5 % (42.0-54.0); HEMOGLOBIN 8.7 g/dL (13.5-17.5); PLATELET COUNT 200 10x3/uL (130-400)
--- NOTE | 2019-09-02 07:15 | NUR ---
RESTING QUIETLY NAD NOTED
[2019-09-02 10:33] VITALS: BP 178/84
[2019-09-02 15:12] VITALS: BP 136/51
--- NOTE | 2019-09-02 15:28 | NUR ---
OT NOTE: PT PERFORMED MUCH BETTER TODAY, HOWEVER, REMAINS VERY WEAK. BED MOB WITH MIN ASSIST; TRANSFER FROM BED TO CHAIR WITH WALKER AND MIN ASSIST; AMB IN ROOM X APPROX 12-15 FT WITH WALKER, MIN ASSIST, AND CUES TO STAY ON TASK.. PT WAS GETTING SOB AND WAS INSTRUCTED TO KEEP WALKING TOWARDS CHAIR VS TALKING. PERFORMED TOILETING WITH MIN ASSIST, HOWEVER, CONT TO REPORT THE NEED TO URINATE BUT UNABLE TO PERFORM. SIMPLE GROOMING TASKS WITH SET UP/MIN ASSIST. MAX ASSIST TO NICHOLE SOCKS AND LE DRESSING. RECOMMEND IP REHAB PRIOR TO DC HOME EUSEBIA FARLEY, OTR/L
--- NOTE | 2019-09-02 16:18 | MORECARE ---
CASE MANAGEMENT DISCHARGE SUMMARY PATIENT: SAMIRA GARCIA UNIT: [id number] ADM DATE: 08/31/19 AGE: 69 : 50 SEX: M ROOM/BED: D.2134 AUTHOR: BABAK VINSON PHYSICIAN: REFERRING PHYSICIAN: JUNIOR DELGADO MD DATE OF SERVICE: 09/02/19 Discharge Plan Patient Name: SAMIRA [facility]ARCIA [facility] [facility] 1950 Planned Disposition: Inpatient Rehab Anticipated Discharge Date: 09/02/19 Discharge Date: Expected LOS: 2 Initial Reviewer: [email or web address] Initial Review Date: 09/02/2019 Generated: 09/02/19 5:18 pm DCPIA - Discharge Planning Initial Assessment Updated by [email or web address]: Dk Saldivar on 09/02/19 4:17 pm * Is the patient Alert and Oriented? Yes * How many steps to enter\exit or inside your home? * PCP DR. AVERY * Pharmacy [facility] [place] [facility] * Preadmission Environment Home Alone * ADLs Independent * Equipment Cane * Other Equipment NO MEDICAL EQUIPMENT PROVIDER PRERERENCE * List name and contact numbers for known caregivers / representatives who currently or will assist patient after discharge: ALEKSANDER PERRIN, SISTER, * Verbal permission to speak to the caregivers and representatives has been obtained from the patient. Yes * Community resources currently utilized None * Please name any agencies selected above. NONE * Additional services required to return to the preadmission environment? Yes * Can the patient safely return to the preadmission environment? Yes * Has this patient been hospitalized within the prior 30 days at any hospital? Yes Patient Name: SAMIRA GARCIA Page [phone] at 1618 All edits/amendments must be made on the electronic document DICTATION DATE: 09/02/191617 KILN DOOR REPAIRER: ASAEL 09/02/191617 RPT#: [id number] DC DATE: STATUS: ADM IN [facility] [address] [place] [address] END OF REPORT
--- NOTE | 2019-09-02 16:32 | MORECARE ---
CASE MANAGEMENT DISCHARGE SUMMARY PATIENT: SAMIRA GARCIA UNIT: [id number] ADM DATE: 08/31/19 AGE: 69 : 50 SEX: M ROOM/BED: D.2134 AUTHOR: KARELDOC PHYSICIAN: REFERRING PHYSICIAN: JUNIOR DELGADO MD DATE OF SERVICE: 09/02/19 Discharge Plan Patient Name: SAMIRA GARCIA [facility] [facility] 1950 Planned Disposition: Inpatient Rehab Anticipated Discharge Date: 09/02/19 Discharge Date: Expected LOS: 2 Initial Reviewer: [email or web address] Initial Review Date: 09/02/2019 Generated: 09/02/19 5:32 pm Comments DCP- Discharge Planning Updated by [email or web address]: Dk Saldivar on 09/02/19 3:[address] Patient Name: SAMIRA GARCIA Admission Status: ER Accout number: [id number] Admission Date: 08-31-2019 : 1950 Admission Diagnosis: Attending: JUNIOR DELGADO Current LOS: 2 Anticipated DC Date: 09-02-2019 Planned Disposition: Inpatient Rehab Primary Insurance: MEDICARE A & B PLANNED EXTERNAL PROVIDER: [facility] INPATIENT REHAB Discharge Planning Comments: CM RECEIVED ORDER FOR INPATIENT REHAB PRESCREENING. CM MET WITH PT AND SISTER, ALEKSANDER, IN ROOM TO DISCUSS DISCHARGE PLANNING AND NEEDS.SAMIRA GARCIA provided verbal consent to discuss current and ongoing needs with/in the presence of: SISTER, ALEKSANDER. PT REPORTS LIVING AT HOME INDEPENDENTLY AND ALONE WITH HIS SISTER CHECKING ON HIM EVERY DAY. PT [place] WITH NO MEDICAL EQUIPMENT PROVIDER PRFERENCE. PT HAS NO OUTSIDE SERVICES ASSISTING IN THE HOME. CM DISCUSSED AVAILABILITY OF HOME HEALTH, REHAB SERVICES AND MEDICAL EQUIPMENT. PT KNOWS HE NEEDS REHAB WITH PLAN TO GO HOME AFTER REHAB. CM DISCUSSED REHAB OPTIONS, LOCATIONS AND PROVIDERS. PT WOULD LIKE TO "STAY HERE" FOR REHAB. CHOICE SIGNED. IMPORTANT MESSAGE FROM MEDICARE PROVIDED AND EXPLAINED. CM MET WITH CARE TEAM AT INTERDISCIPLINARY TEAM MEETING, MARCELO NIEVES IS OK WITH DISCHARGE TO REHAB TODAY IF OK WITH RENAL GROUP. [facility] INPATIENT REHAB REPORTS THEY CAN ACCEPT TODAY IF STABLE FOR DISCHARGE TO REHAB. CM LATER CALLED TO ROOM BY PT'S SISTER ALEKSANDER, MET WITH PT AND SISTER IN ROOM. PT'S SISTER REPORTS CONCERN ABOUT GOING TO REHAB WITHOUT DR GLOVER TAKING CARE OF PT'S MEDICATIONS SHE DOES NOT WANT THEM TO GET MESSED UP AGAIN LIKE THEY DID AT THE OTHER HOSPITAL. CM REVIEWED CHART AND EXPLAINED THAT DR. DE DID ROUND FOR DR. GLOVER TODAY AND THAT IF PT NEEDS RENAL FOLLOW UP WHILE IN REHAB, PT CAN STILL HAVE RENAL DOCTOR FOLLOWING THERE. CM EXPLAINED THE REHAB BEING A MEDICALLY BASED REHAB AND ALL AVAILABLE SERVICES AND ALSO THAT ALL DOCTORS TREATING WILL HAVE TO AGREE FOR DISCHARGE TO REHAB. THEY ASKED TO SEE THE DOCTOR. CM NOTIFIED MARCELO NIEVES WHO INFORMED CM THAT DR. SANDERS WILL ROUND SHORTLY. PT PLANS TO DISCHARGE TO [facility]PAT[facility]. [facility]PAT[facility] REHAB [facility] PLANS TO ACCEPT; NOTIFY REHAB WHEN DISCHARGE ORDER IS RECEIVED FOR FUTHER INSTRUCTIONS FOR ADMISSION TO REHAB. Brake Repairer Hydraulic: Dk Saldivar DCPIA - Discharge Planning Initial Assessment Updated by [email or web address]: Dk Saldivar on 09/02/19 4:17 pm * Is the patient Alert and Oriented? Yes * How many steps to enter\\exit or inside your home? * PCP DR. AVERY * Pharmacy [facility] [place] [facility] * Preadmission Environment Home Alone * ADLs Independent * Equipment Cane * Other Equipment NO MEDICAL EQUIPMENT PROVIDER PRERERENCE * List name and contact numbers for known caregivers / representatives who currently or will assist patient after discharge: ALEKSANDER PERRIN, SISTER, * Verbal permission to speak to the caregivers and representatives has been obtained from the patient. Yes * Community resources currently utilized None * Please name any agencies selected above. NONE * Additional services required to return to the preadmission environment? Yes * Can the patient safely return to the preadmission environment? Yes * Has this patient been hospitalized within the prior 30 days at any hospital? Yes Coverage Notice Reviewer: [id number] - Dk Saldivar Notice Issued Date-Time: 09/02/2019 9:55 Notice Type: Patient Choice Letter Notice Delivered To: Patient Relationship to Patient: Waiter/Waitress Bar Name: Delivery Method: HAND - Hand Delivered Janett Days: Prior Verbal Notification: Recipient Understood Notice: Yes Recipient Signature: Yes Med Rec Note Co-signed by Attending: Coverage Notice Comment: [facility] IN[facility] Last DP export: 09/02/19 3:18 pm Patient Name: SAMIRA GARCIA Page [phone] at 1632 All edits/amendments must be made on the electronic document DICTATION DATE: 09/02/191631 PAPER MACHINE SUPERVISOR: ASAEL 09/02/191631 RPT#: [id number] DC DATE: STATUS: ADM IN [facility] [address] [place] [address] END OF REPORT
--- NOTE | 2019-09-02 16:33 | NUR ---
OT NOTE: PT COMPLETED SIT TO STAND WITH CGA. PT COMPLETED STANDING BALANCE WITH CGA. PT COMPLETED SITTING BALANCE WITH SPV. PT COMPLETED UB HYGIENE TASK WITH SET UP. PT COMPLETED BUE AROM EXS NOT TO EXCEED 90 DEGREES OF FLEXION. PT SISTER PRESENT. [phone] THANK YOU, ANGELICA HERNANDEZ
--- NOTE | 2019-09-02 16:56 | MORECARE ---
CASE MANAGEMENT DISCHARGE SUMMARY PATIENT: SAMIRA GARCIA UNIT: [id number] ADM DATE: 08/31/19 AGE: 69 : 50 SEX: M ROOM/BED: D.2134 AUTHOR: KARELDOC PHYSICIAN: REFERRING PHYSICIAN: JUNIOR DELGADO MD DATE OF SERVICE: 09/02/19 Discharge Plan Patient Name: SAMIRA [facility]ARCIA [facility] [facility] 1950 Planned Disposition: Inpatient Rehab Anticipated Discharge Date: 09/02/19 Discharge Date: Expected LOS: 2 Initial Reviewer: [id number] Initial Review Date: 09/02/2019 Generated: 09/02/19 5:56 pm Comments DCP- Discharge Planning Updated by [email or web address]: Dk Koch on 09/02/19 3:[address] Patient Name: SAMIRA GARCIA Admission Status: ER Accout number: [id number] Admission Date: 08-31-2019 : 1950 Admission Diagnosis: Attending: JUNIOR DELGADO Current LOS: 2 Anticipated DC Date: 09-02-2019 Planned Disposition: Inpatient Rehab Primary Insurance: MEDICARE A & B PLANNED EXTERNAL PROVIDER: [facility] INPATIENT REHAB Discharge Planning Comments: CM RECEIVED ORDER FOR INPATIENT REHAB PRESCREENING. CM MET WITH PT AND SISTER, ALEKSANDER, IN ROOM TO DISCUSS DISCHARGE PLANNING AND NEEDS.SAMIRA GARCIA provided verbal consent to discuss current and ongoing needs with/in the presence of: SISTER, ALEKSANDER. PT REPORTS LIVING AT HOME INDEPENDENTLY AND ALONE WITH HIS SISTER CHECKING ON HIM EVERY DAY. PT [place] WITH NO MEDICAL EQUIPMENT PROVIDER PRFERENCE. PT HAS NO OUTSIDE SERVICES ASSISTING IN THE HOME. CM DISCUSSED AVAILABILITY OF HOME HEALTH, REHAB SERVICES AND MEDICAL EQUIPMENT. PT KNOWS HE NEEDS REHAB WITH PLAN TO GO HOME AFTER REHAB. CM DISCUSSED REHAB OPTIONS, LOCATIONS AND PROVIDERS. PT WOULD LIKE TO "STAY HERE" FOR REHAB. CHOICE SIGNED. IMPORTANT MESSAGE FROM MEDICARE PROVIDED AND EXPLAINED. CM MET WITH CARE TEAM AT INTERDISCIPLINARY TEAM MEETING, MARCELO NIEVES IS OK WITH DISCHARGE TO REHAB TODAY IF OK WITH RENAL GROUP. [facility] OF INPATIENT REHAB REPORTS THEY CAN ACCEPT TODAY IF STABLE FOR DISCHARGE TO REHAB. CM LATER CALLED TO ROOM BY PT'S SISTER ALEKSANDER, MET WITH PT AND SISTER IN ROOM. PT'S SISTER REPORTS CONCERN ABOUT GOING TO REHAB WITHOUT DR GLOVER TAKING CARE OF PT'S MEDICATIONS SHE DOES NOT WANT THEM TO GET MESSED UP AGAIN LIKE THEY DID AT THE OTHER HOSPITAL. CM REVIEWED CHART AND EXPLAINED THAT DR. DE DID ROUND FOR DR. GLOVER TODAY AND THAT IF PT NEEDS RENAL FOLLOW UP WHILE IN REHAB, PT CAN STILL HAVE RENAL DOCTOR FOLLOWING THERE. CM EXPLAINED THE REHAB BEING A MEDICALLY BASED REHAB AND ALL AVAILABLE SERVICES AND ALSO THAT ALL DOCTORS TREATING WILL HAVE TO AGREE FOR DISCHARGE TO REHAB. THEY ASKED TO SEE THE DOCTOR. CM NOTIFIED MARCELO NIEVES WHO INFORMED CM THAT DR. SANDERS WILL ROUND SHORTLY. PT PLANS TO DISCHARGE TO INPATIENT REHAB AT [place]. INPATIENT REHAB AT [place] PLANS TO ACCEPT; NOTIFY REHAB WHEN DISCHARGE ORDER IS RECEIVED FOR FUTHER INSTRUCTIONS FOR ADMISSION TO REHAB. Lapidarist: Dk Koch Appended by Dk Koch on 09/02/2019 16:50 CROP PEST CONTROL SPECIALIST: CM RECEIVED CALL FROM [facility] OF INPATIENT REHAB AT [place], PT HAS BEEN ACCEPTED AND IF DISCHARGED TONIGHT TO INPATIENT REHAB, HE WILL ADMIT TO ROOM 1114-B AFTER NURSE REPORT IS CALLED. CM WAITING DISCHARGE ORDERS TO INPATIENT REHAB. DK KOCH, CASE MANAGEMENT DCPIA - Discharge Planning Initial Assessment Updated by [email or web address]: Dk Koch on 09/02/19 4:17 pm * Is the patient Alert and Oriented? Yes * How many steps to enter\\exit or inside your home? * PCP DR. AVERY * Pharmacy [facility] OR [place] MAIL ORDER * Preadmission Environment Home Alone * ADLs Independent * Equipment Cane * Other Equipment NO MEDICAL EQUIPMENT PROVIDER PRERERENCE * List name and contact numbers for known caregivers / representatives who currently or will assist patient after discharge: ALEKSANDER PERRIN, SISTER, * Verbal permission to speak to the caregivers and representatives has been obtained from the patient. Yes * Community resources currently utilized None * Please name any agencies selected above. NONE * Additional services required to return to the preadmission environment? Yes * Can the patient safely return to the preadmission environment? Yes * Has this patient been hospitalized within the prior 30 days at any hospital? Yes Coverage Notice Reviewer: [id number] - Dk Koch Notice Issued Date-Time: 09/02/2019 9:55 Notice Type: Patient Choice Letter Notice Delivered To: Patient Relationship to Patient: Director Behavioral Health Name: Delivery Method: HAND - Hand Delivered Janett Days: Prior Verbal Notification: Recipient Understood Notice: Yes Recipient Signature: Yes Med Rec Note Co-signed by Attending: Coverage Notice Comment: [facility] IN[facility] Last DP export: 09/02/19 3:32 pm Patient Name: SAMIRA GARCIA Page [phone] at 1656 All edits/amendments must be made on the electronic document DICTATION DATE: 09/02/191655 MEDICAL WRITER: ASAEL 09/02/191655 RPT#: [id number] DC DATE: STATUS: ADM IN [facility] [address] [place] [address] END OF REPORT
[2019-09-02 20:00] VITALS: BP 158/63
[2019-09-03 00:20] VITALS: BP 175/71
--- NOTE | 2019-09-03 01:01 | NUR ---
PT RECIEVED UPDRAFT. O2-98% VSS. BED LOW CALL LIGHT WITHIN REACH. SISTER AT BEDSIDE. WILL CONTINUE TO MONITOR.
--- NOTE | 2019-09-03 02:39 | NUR ---
I have reviewed this patient and I concur with the Shift Assessment completed by the Licensed Practical Nurse today this shift.
[2019-09-03 04:00] VITALS: BP 172/78
--- NOTE | 2019-09-03 05:28 | NUR ---
PT ONLY HAD COUPLE HOURS OF SLEEP LAST NIGHT. PT STATES HE'S FEELING "SHAKY INSIDE." FSBS-119 AT THIS TIME. PRN XANEX GIVEN. PT STATES THAT HE FEELS ANXIOUS. PT VSS. RR EVEN AND UNLABORED. SISTER AT BEDSIDE. BED LOW CALL LIGHT WITHIN REACH. WILL CONTINUE TO MONITOR.
--- NOTE | 2019-09-03 05:41 | NUR ---
PT AND FAMILY EAGER TO SPEAK WITH DR. LANZA THIS AM.
[2019-09-03 06:51] LABS: BASOPHILS 0.3 % (0-2); EOSINOPHILS 2.5 % (0-7); HEMATOCRIT 27.2 % (42.0-54.0); HEMOGLOBIN 8.6 g/dL (13.5-17.5); IMMATURE GRANULOCYTES 0.4 % (0-5); LYMPHOCYTES 9.1 % (15-50); MCH 30.4 pg (26.0-34.0); MCHC 31.6 g/dL (31.0-37.0); MCV 96.1 fL (80.0-100.0); MEAN PLATELET VOLUME 8.8 fL (7.4-10.4); MONOCYTES 8.1 % (2-11); NEUTROPHILS 79.6 % (40-80); RBC 2.83 10x6/uL (4.20-6.10); RDW 14.4 % (11.5-14.5); WBC 7.9 10x3/uL (4.8-10.8)
[2019-09-03 07:07] LABS: PLATELET COUNT 262 10x3/uL (130-400)
[2019-09-03 07:17] LABS: ANION GAP 14.2 mmol/L (8-16); CARBON DIOXIDE 23.2 mmol/L (21.0-32.0); CREATININE - SERUM 4.1 mg/dL (0.6-1.3); MAGNESIUM - SERUM 2.5 mg/dL (1.8-2.4); POTASSIUM - SERUM 4.4 mmol/L (3.5-5.1); VANCOMYCIN - RANDOM 5.6 ug/mL (10.0-20.0)
--- NOTE | 2019-09-03 08:49 | NUR ---
PT'S LITHIUM LEVEL IS 1.84. SPOKE WITH EUFEMIA LUNA AND SHE STATES THAT IF THE LITHIUM LEVEL IS ABOVE 1.5 IT IS TOXIC SO I NEED TO SPEAK WITH MD ABOUT CHANGING DOSAGE. I VERBALZIED UNDERSTANDING.
[2019-09-03 09:09] VITALS: BP 171/82
--- NOTE | 2019-09-03 11:02 | NUR ---
SPOKE WITH NURSE AT DR. LANZA'S OFFICE AND SHE TOOK A MESSAGE AND STATES SHE WILL SEND IT OVER TO HER. I VERBALIZED UNDERSTANDING.
--- NOTE | 2019-09-03 11:36 | NUR ---
SPOKE WITH DR. LANZA SHE STATES TO GET A STAT EKG, ORDER LITHIUM LEVEL LAB X5 DAYS, AND PUT A CONTINOUS HOLD ON THE LITHIUM. I VERBALIZED UNDERSTANDING. SHE STATES SHE WILL COME CHECK ON AND SEE THE PT LATER TODAY AND TO LET THEM KNOW THAT. I VERBALIZED UNDERSTANDING. SPOKE WTIH PT'S SISTER AND PT ABOUT MY CONVERSATION WITH DR. LANZA AND THEY BOTH VERBALIZED UNDERSTANDING.
--- NOTE | 2019-09-03 12:44 | NUR ---
OT NOTE: PT DOING WELL TODAY. SLIGHTLY LETHARGIC IN AM, BUT AWAKENED EASILY AND AGREEABLE FOR THERAPY. BED MOB WITH MIN ASSIST; IN ROOM AMBULATION WITH WALKER, EXT TIME, AND MIN ASSIST. PT REQUIRES FREQ VERBAL CUES TO ATTEND TO TASKS. TRANSFERS WITH MIN ASSIST; VERBAL CUES FOR WALKER MGMT; SIMPLE GROOMING WITH SET UP; EDUCATED ON UE/LE EXS TO BE PERFORMED THROUGHOUT THE DAY. PT ABLE TO DEMONSTRATE EXS BUT WILL REQUIRE CUES/REMINDERS TO PERFORM. EUSEBIA FARLEY, OTR/L [phone]
[2019-09-03 13:48] VITALS: BP 169/70
--- NOTE | 2019-09-03 14:22 | NUR ---
Nutrition Follow-up: Good/fair appetite. ~50% of breakfast eaten this AM; reports eating well yesterday. C/o constipation; states he usually takes Miralax at home. Diet: Renal ADA Wt: 218.2# (09/01) Last BM: 08/30 per pt Labs noted: GFR 15, Glu 113, Mg 2.5 Meds noted: Lasix, Colace, Remeron -Continue current diet as tolerated. -Need new wt; noted daily wts ordered. -RD following.
--- NOTE | 2019-09-03 16:05 | NUR ---
OT NOTE: PT COMPLETED BED MOB WITH MIN A. PT COMPLETED BUE AROM EXS. PT COMPLETED FACE WASH WITH SETUP. PT SISTER AT BED SIDE. [phone] THANK YOU, ANGELICA HERNANDEZ
--- NOTE | 2019-09-03 16:10 | NUR ---
PT SITTING IN RECLINEFR CHAIR. SISTER AT [facility]. PT HAS NO FURTHER NEEDS AT THIS TIME. CL IN REACH.
[2019-09-03 17:12] VITALS: BP 164/68
--- NOTE | 2019-09-03 18:10 | NUR ---
I have reviewed this patient and I concur with the Shift Assessment completed by the Licensed Practical Nurse today this shift.
[2019-09-03 20:56] VITALS: BP 170/75
--- NOTE | 2019-09-04 00:26 | NUR ---
PT WAKES UP FROM SLEEP FEELING LIKE HE CANT BREATH AND SHORT OF BREATH. PT O2-96%. PULLED PT UP IN BED AND REASSURED THAT O2 WAS STABLE. BED LOW CALL LIGHT WITHIN REACH. WILL CONTINUE TO MONITOR.
[2019-09-04 00:30] VITALS: BP 152/69
[2019-09-04 04:30] VITALS: BP 188/79
[2019-09-04 05:34] LABS: BASOPHILS 0.3 % (0-2); EOSINOPHILS 2.9 % (0-7); HEMATOCRIT 27.2 % (42.0-54.0); HEMOGLOBIN 8.6 g/dL (13.5-17.5); IMMATURE GRANULOCYTES 0.3 % (0-5); LYMPHOCYTES 12.5 % (15-50); MCH 30.1 pg (26.0-34.0); MCHC 31.6 g/dL (31.0-37.0); MCV 95.1 fL (80.0-100.0); MEAN PLATELET VOLUME 8.5 fL (7.4-10.4); MONOCYTES 12.5 % (2-11); NEUTROPHILS 71.5 % (40-80); PLATELET COUNT 283 10x3/uL (130-400); RBC 2.86 10x6/uL (4.20-6.10)
[2019-09-04 05:50] LABS: ANION GAP 11.6 mmol/L (8-16); CALCIUM 9.5 mg/dL (8.5-10.1); CARBON DIOXIDE 26.5 mmol/L (21.0-32.0); CREATININE - SERUM 3.9 mg/dL (0.6-1.3); MAGNESIUM - SERUM 2.5 mg/dL (1.8-2.4); POTASSIUM - SERUM 4.1 mmol/L (3.5-5.1)
--- NOTE | 2019-09-04 06:22 | NUR ---
I have reviewed this patient and I concur with the Shift Assessment completed by the Licensed Practical Nurse today this shift.
--- NOTE | 2019-09-04 07:48 | NUR ---
PATIENT IS ALERT AND AWAKE AND UP TO BED SIDE COMMODE WITH SISTER AT BEDSIDE. DENIES ANY NEEDS AT THIS TIME. SAFETY PROTOCOL IN PLACE.
--- NOTE | 2019-09-04 07:53 | NUR ---
PLACED A WORK ORDER FOR THE REMOTE TO BE REPAIRED FOR THE VOLUME CONTROL ON THE TV.
[2019-09-04 10:55] VITALS: BP 174/78
--- NOTE | 2019-09-04 14:04 | EC ---
PATIENT:SAMIRA GARCIA DATE OF SERVICE: 08/31/19 SEX: M MEDICAL RECORD: [id number] DATE OF : [birth year] LOCATION:D.M2 D.213 AGE OF PATIENT: 69 ADMISSION DATE: 08/31/19 REFERRING PHYSICIAN: INTERPRETING PHYSICIAN: NIC DAN MD ECHOCARDIOGRAM REPORT ECHO CHARGES 4 ECHO COMPLETE Date: 09/01/19 CLINICAL DIAGNOSIS: CHF ECHOCARDIOGRAPHIC MEASUREMENTS (adult normal given) AC root (d.<3.7cm) 3.2 cm LV Septum d (<1.2 cm> 1.1 cm Valve Excursion 2.4 cm LV Septum (systole) 2.0 cm Left Atria (s.<4.0cm> 5.2 cm LVPW d(<1.2cm) 1.0 cm RV (d.<2.3cm) 3.9 cm LVPW (sytole) 1.3 cm LV diastole(<5.6CM) 6.5 cm MV E-F(>70mm/sec) cm LV systole 4.4 cm LVOT Diameter 2.2 cm MV exc.(>10mm) cm Est.ejection fraction (50-75%) % DOPPLER: LVIT cm/sec A 95 cm/sec E 142 cm/sec LA cm/sec RVSP 65.1 mmHg LVOT 179 cm/sec AOP1/2T m/s Asc. Ao 213 cm/sec RVOT 85 cm/sec RA cm/sec PA 147 cm/sec AV Gradient Peak 18.1 mmHg AV Mean 8.7 mmHg AV Area 3.5 cm MV Gradient Peak 10.6 mmHg MV Mean 4.9 mmHg MV Area cm COMMENTS: Group Dynamics Instructor: [facility] Job Lithographer: 1 Dr. Dan TAPE# PACS Pericardial Effusion N DATE OF SERVICE: 09/01/2019 FINDINGS: 1. Left ventricular chamber size is mildly dilated. Left ventricular systolic function is preserved at 50%. 2. Left atrium is dilated at 5.2 cm. Right atrium and right ventricular chamber sizes are mildly dilated. 3. Valvular structures: Aortic valve demonstrates aortic sclerosis but no significant aortic stenosis. The remaining valvular structures have normal structure and motion. ECHOCARDIOGRAM REPORT [id number] SAMIRA GARCIA 4. Doppler interrogation reveals mild mitral regurgitation, sjaw-ey-[id number] tricuspid regurgitation, no other valvular insufficiency or stenosis. Pulmonary systolic pressure is elevated estimated at 65 mmHg. 5. No evidence of pericardial effusion or left ventricular thrombus. TRANSINT:[id number] Voice Confirmation ID: [id number] DOCUMENT ID: [id number] NIC DAN MD at 1404 CC: [id number] DICTATION DATE: 09/01/19 1613 CORPORATE SAFETY DIRECTOR: 09/01/19 192 ADM IN [place] [id number] [place] [address]
[2019-09-04 14:09] VITALS: BP 150/70
--- NOTE | 2019-09-04 15:38 | NUR ---
OT NOTE: PT COMPLETED SIT TO STAND WITH MIN A. PT COMPLETED ADL MOB WITH CGA. PT COMPLETED FACE WASH WITH SETUP. PT COMPLETED UE AROM AXS. [phone] THANK YOU, ANGELICA HERNANDEZ
[2019-09-04 17:24] VITALS: BP 159/72
--- NOTE | 2019-09-04 18:43 | NUR ---
PATIENT IS SITTING UP IN CHAIR. DENIES ANY NEEDS AT THIS TIME. HE IS LETHARGIC AT TIMES. SISTER IS AT BEDSIDE.
--- NOTE | 2019-09-04 19:10 | NUR ---
BEDSIDE REPORT RECEIVED FROM DAY SHIFT, PT CARE ASSUMED. INTRODUCED SELF AND WROTE NAME ON BOARD. PT SITTING UP IN CHAIR, WATCHING TV, AAOX4. DENIES PAIN OR ANY OTHER NEEDS AT THIS TIME. FAMILY AT BEDSIDE. BED IN LOWEST POSITION, CALL LIGHT WITHIN REACH. WILL CONTINUE TO MONITOR.
[2019-09-04 20:00] VITALS: BP 177/85
[2019-09-05] VITALS: BP 173/93
[2019-09-05 04:00] VITALS: BP 157/82
[2019-09-05 06:03] LABS: BASOPHILS 0.3 % (0-2); EOSINOPHILS 2.7 % (0-7); HEMOGLOBIN 8.5 g/dL (13.5-17.5); IMMATURE GRANULOCYTES 0.3 % (0-5); LYMPHOCYTES 19.2 % (15-50); MCH 29.7 pg (26.0-34.0); MCHC 31.5 g/dL (31.0-37.0); MCV 94.4 fL (80.0-100.0); MEAN PLATELET VOLUME 8.3 fL (7.4-10.4); MONOCYTES 11.9 % (2-11); NEUTROPHILS 65.6 % (40-80); PLATELET COUNT 258 10x3/uL (130-400); RBC 2.86 10x6/uL (4.20-6.10); RDW 13.6 % (11.5-14.5); WBC 6.4 10x3/uL (4.8-10.8)
[2019-09-05 06:25] LABS: ANION GAP 11.2 mmol/L (8-16); CALCIUM 9.4 mg/dL (8.5-10.1); CARBON DIOXIDE 26.1 mmol/L (21.0-32.0); CREATININE - SERUM 3.9 mg/dL (0.6-1.3); MAGNESIUM - SERUM 2.5 mg/dL (1.8-2.4); POTASSIUM - SERUM 4.3 mmol/L (3.5-5.1)
--- NOTE | 2019-09-05 07:30 | NUR ---
PATIENT IS RESTING QUIETLY AT THIS TIME. DENIES ANY NEEDS AT THIS TIME.
[2019-09-05 09:50] VITALS: BP 174/76
--- NOTE | 2019-09-05 12:04 | NUR ---
OT NOTE: PT COMPLETED SITTING BALANCE WITH SBA. PT COMPLETED SIT TO STAND WITH CGA. PT COMPLETED ADL MOB WITH RW AND REQUIRED CGA. [phone] THANK YOU, ANGELICA HERNANDEZ
--- NOTE | 2019-09-05 16:48 | NUR ---
IV REMOVED FROM LEFT AC CATHETER INTACT. NEW IV PLACED IN RIGHT HAND.22G ONE STICK.
--- NOTE | 2019-09-05 17:19 | NUR ---
PATIENT SITTING UP IN CHAIR. SISTER AT BEDSIDE. DENIES ANY NEEDS AT THIS TIME.
[2019-09-05 17:23] VITALS: BP 171/80
--- NOTE | 2019-09-05 19:40 | NUR ---
GREETED PATIENT AND INTRODUCED MYSELF HIS NURSE. PATIENT IS SITTING IN RECLINER WITH FAMILY MEMEBERS AT BEDSIDE. AOX4. O2 AT 3L IN USE VIA NC. RESPIRATIONS EVEN. NO S/S OF DISTRESS. STATES NO PAIN AT THIS TIME. CALL LIGHT IN REACH.
[2019-09-05 20:00] VITALS: BP 194/89
--- NOTE | 2019-09-05 20:14 | NUR ---
SPOKE WITH SOTO BEAN APN CONCERNING PTS. ELEVATED BLOOD PRESSURE OF 194/89. INSTRUCTIONS BY SOTO WHERE TO ADMINISTER HIS LOPRESSOR AND CATAPRES AND RECHECK BP IN ONE HOUR. WCTM.
--- NOTE | 2019-09-05 23:19 | NUR ---
PT. RESTING QUIETLY WITH EYES CLOSED. RESPIRATIONS EVEN. NO S/S OF DISTRESS. FAMILY MEMEBER AT BEDSIDE. O2 AT 2L VIA NC. CALL LIGHT IN REACH
[2019-09-06] VITALS: BP 132/81
--- NOTE | 2019-09-06 02:07 | NUR ---
PT. RESTING QUIETLY WITH EYES CLOSED. HOB AT 35 DEGREES. O2 AT 4L IN USE VIA NC. RESPIRATIONS EVEN. NO S/S OF DISTRESS. CALL LIGHT IN REACH. FAMILY MEMBER ASLEEP IN CHAIR AT BEDSIDE.
[2019-09-06 04:00] VITALS: BP 136/79
--- NOTE | 2019-09-06 04:06 | NUR ---
PT. AWAKE AND HELPED AMBULATE FROM BED TO RECLINER. O2 AT 4L IN USE VIA NC. RESPIRATIONS EVEN. NO S/S OF DISTRESS. CALL LIGHT IN REACH. FAMILY MEMBER IN ROOM. DENIES ANY FURTHER NEEDS AT THIS TIME.
[2019-09-06 06:47] LABS: BASOPHILS 0.5 % (0-2); EOSINOPHILS 2.2 % (0-7); HEMATOCRIT 28.3 % (42.0-54.0); HEMOGLOBIN 8.9 g/dL (13.5-17.5); IMMATURE GRANULOCYTES 0.9 % (0-5); LYMPHOCYTES 15.8 % (15-50); MCH 29.9 pg (26.0-34.0); MCHC 31.4 g/dL (31.0-37.0); MEAN PLATELET VOLUME 8.7 fL (7.4-10.4); MONOCYTES 11.1 % (2-11); NEUTROPHILS 69.5 % (40-80); PLATELET COUNT 252 10x3/uL (130-400); RBC 2.98 10x6/uL (4.20-6.10); RDW 13.8 % (11.5-14.5); WBC 6.4 10x3/uL (4.8-10.8)
--- NOTE | 2019-09-06 07:19 | NUR ---
PT ALERT AND ORIENTED, UP WITH SISTER TO THE BATHROOM. STATES HES FEELING STRONGER THIS MORNING AND HAPPY TO BE DOING BETTER. AMBULATED WILL WITH MIN ASSIST TO BATHROOM, BACK IN CHAIR NOW. WAITING FOR BREAKFAST. NO COMPLAINTS OR CONCERNS STATED AT THIS TIME, CL IN REACH, SRX2. SISTER AT BEDSIDE.
[2019-09-06 07:38] LABS: ANION GAP 12.1 mmol/L (8-16); CALCIUM 9.8 mg/dL (8.5-10.1); CARBON DIOXIDE 25.7 mmol/L (21.0-32.0); CREATININE - SERUM 3.8 mg/dL (0.6-1.3); MAGNESIUM - SERUM 2.4 mg/dL (1.8-2.4); POTASSIUM - SERUM 3.8 mmol/L (3.5-5.1)
--- NOTE | 2019-09-06 09:19 | NUR ---
PT AWAKE ALERT AND ORIENTED. TOOK MEDICATIONS WIHOUT DIFFICULTY OR ASSISTANCE. STATES HE WAS STARVING FOR BREAKFST. CL IN REACH, SRX2.
[2019-09-06 10:12] VITALS: BP 146/63
[2019-09-06 11:09] LABS: IMMUNOGLOBULIN A 114 mg/dL (61-437); IMMUNOGLOBULIN G 746 mg/dL (700-1600)
--- NOTE | 2019-09-06 11:40 | NUR ---
PT AWAKE AND ORIENTED, SITTING IN CHAIR WAITING FOR LUNCH. SISTER AT BEDSIDE. QUESTIONS ANSWERED TO THE BEST OF MY ABILITY. NO COMPLAINTS/CONCERNS, CLIN REACH,S RX2.
[2019-09-06 12:00] VITALS: BP 169/80
--- NOTE | 2019-09-06 15:07 | NUR ---
PT RESTING COMFORTABLY IN CHAIR. EYES CLSED, BREATHS EVEN REGULAR AND UNLABORED. SISTER OUT OF ROOM AT THIS TIME. CL IN RE, SRX2, DOOR LEFT OPEN PT VISABLE.
--- NOTE | 2019-09-06 18:02 | NUR ---
I CONCUR WITH THE SET UP MECHANIC COATING MACHINES ASESSMENT OF THIS PATIENT.
[2019-09-06 18:09] VITALS: BP 135/84
--- NOTE | 2019-09-06 18:23 | NUR ---
ALERT AND ORIENTED, UP TO RECLINER IN ROOM VISITING MULTIPLE FAMLIY MEMEBERS. IN PLESANT MOOD, STATES HE FEELS WELL. I/V INTACT, WORKING WNL. NO COMPLAINTS/CONCERNS, ALL QUESTIONS ANSWERED TO THE BEST OF MY ABILITY. CL IN REACH, SRX2.
[2019-09-06 20:00] VITALS: BP 187/81
--- NOTE | 2019-09-06 20:01 | NUR ---
RECIEVED UP IN CHAIR WITH O2@ 4 LITERS PER N/C. LUNG SOUNDS CLEAR BILATERALLY. IV TO RIGHT HAND SL. EDEMA TO LOWER EXTREMITIES. UP AD JEANNE TO B/R. DENIES ANY NEEDS AT THIS TIME.
[2019-09-07] VITALS: BP 169/81
[2019-09-07 04:00] VITALS: BP 192/99
--- NOTE | 2019-09-07 07:00 | NUR ---
RECEIVED REPORT. ASSUMED CARE OF PATIENT. CALL LIGHT WITHIN REACH. PATIENT WITH EYES CLOSED, EASILY AROUSED. FEMALE AT BEDSIDE. NO DISTRESS. RESP EVEN AND UNLABORED.
[2019-09-07 07:04] LABS: BASOPHILS 0.8 % (0-2); EOSINOPHILS 3.6 % (0-7); HEMATOCRIT 28.3 % (42.0-54.0); IMMATURE GRANULOCYTES 1.1 % (0-5); LYMPHOCYTES 21.5 % (15-50); MCH 30.1 pg (26.0-34.0); MCHC 31.8 g/dL (31.0-37.0); MCV 94.6 fL (80.0-100.0); MEAN PLATELET VOLUME 8.7 fL (7.4-10.4); MONOCYTES 10.4 % (2-11); NEUTROPHILS 62.6 % (40-80); PLATELET COUNT 290 10x3/uL (130-400); RBC 2.99 10x6/uL (4.20-6.10); RDW 13.7 % (11.5-14.5); WBC 6.7 10x3/uL (4.8-10.8)
[2019-09-07 07:23] LABS: ALBUMIN 3.3 g/dL (3.4-5.0); ANION GAP 11.5 mmol/L (8-16); BILIRUBIN - TOTAL 0.19 mg/dL (0.2-1.3); CALCIUM 9.6 mg/dL (8.5-10.1); CARBON DIOXIDE 28.2 mmol/L (21.0-32.0); CREATININE - SERUM 3.7 mg/dL (0.6-1.3); POTASSIUM - SERUM 3.7 mmol/L (3.5-5.1); PROTEIN - SERUM 6.7 g/dL (6.4-8.2); T4 THYROXIN - FREE 0.96 ng/dL (0.76-1.46); THYROID STIMULATING HORMONE 8.74 uIU/mL (0.36-3.74)
[2019-09-07 08:09] VITALS: BP 187/85
--- NOTE | 2019-09-07 11:42 | NUR ---
FSBS 130. NO INSULIN PER SLIDING SCALE. SITTING UP TO CHAIR. NO DISTRESS.
[2019-09-07 12:18] VITALS: BP 178/78
--- NOTE | 2019-09-07 16:25 | NUR ---
FSBS 126. NO INSULIN PER SLIDING SCALE.
--- NOTE | 2019-09-07 16:51 | NUR ---
MEDICATED FOR ELEVATED BLOOD PRESSURE WITH HYDRALZINE 10MG. NO DISTRESS. SITTING IN CHAIR AT BEDSIDE. BP 189/99.
[2019-09-07 17:44] VITALS: BP 196/84
--- NOTE | 2019-09-07 18:15 | NUR ---
HERE AND NEW ORDERS RECEIVED.
--- NOTE | 2019-09-07 19:38 | NUR ---
RECEIVED UP IN CHAIR WITH SISTER AT BEDSIDE. ALERT AND ORIENTED X4. UP AD JEANNE TO B/R. O2@ 4 LITERS PER N/C IN PLACE. IV TO RIGHT HAND SL. TSH THIS AM 8.74. HAVE PAGED NUT PACKER TO NOTIFY AND RECEIVE ORDERS. SYSTOLIC AT THIS TIME 188. WILL GIVE PRN.
[2019-09-07 20:14] VITALS: BP 188/74
[2019-09-08] VITALS: BP 182/76
[2019-09-08 04:28] VITALS: BP 192/79
[2019-09-08 06:32] LABS: BASOPHILS 0.3 % (0-2); EOSINOPHILS 3.1 % (0-7); HEMATOCRIT 29.9 % (42.0-54.0); HEMOGLOBIN 9.4 g/dL (13.5-17.5); IMMATURE GRANULOCYTES 1.1 % (0-5); LYMPHOCYTES 17.4 % (15-50); MCH 29.8 pg (26.0-34.0); MCHC 31.4 g/dL (31.0-37.0); MCV 94.9 fL (80.0-100.0); MEAN PLATELET VOLUME 8.8 fL (7.4-10.4); MONOCYTES 7.5 % (2-11); NEUTROPHILS 70.6 % (40-80); PLATELET COUNT 286 10x3/uL (130-400); RBC 3.15 10x6/uL (4.20-6.10); RDW 13.8 % (11.5-14.5); WBC 7.4 10x3/uL (4.8-10.8)
[2019-09-08 06:49] LABS: ALBUMIN 3.5 g/dL (3.4-5.0); ANION GAP 10.3 mmol/L (8-16); BILIRUBIN - TOTAL 0.27 mg/dL (0.2-1.3); CALCIUM 9.4 mg/dL (8.5-10.1); CARBON DIOXIDE 30.2 mmol/L (21.0-32.0); CREATININE - SERUM 3.3 mg/dL (0.6-1.3); POTASSIUM - SERUM 3.5 mmol/L (3.5-5.1); PROTEIN - SERUM 6.9 g/dL (6.4-8.2)
--- NOTE | 2019-09-08 09:49 | NUR ---
PT AWAKE AND ORIENTED, SITTING IN RECLINER BY BEDSIDE. SISTER AT BEDSIDE. STATES HE'S FEELING WELL AND REALLY WANTS TO LEAVE SOON. UNDERSTANDS WE HAVE TO WAIT. NO COMPLAINTS/CONCERNS, ALL QUESTIONS ANSWERED TO THE BEST OF MY ABILTIY. CL INR EACH, SRX2.
--- NOTE | 2019-09-08 09:51 | NUR ---
PT AWAKE AND ORIENTED THIS MORNING, STATES THAT HE'S FEELING FINE TODAY, JUST SLEEPY. NO COMPLAINTS OR CONCERNS, ALL QUESTIONS ANSWERED TO THE BEST OF MY ABILITY. NO FAMILY PRESENT AT BEDSIDE. CL IN REACH, SRX2.
[2019-09-08 10:09] VITALS: BP 196/81
--- NOTE | 2019-09-08 10:47 | NUR ---
I have reviewed this patient and I concur with the Shift Assessment completed by the Licensed Practical Nurse today this shift.
[2019-09-08 12:09] LABS: IGG SUBCLASS 1 314 mg/dL (248-810); IGG SUBCLASS 2 309 mg/dL (130-555); IGG SUBCLASS 3 28 mg/dL (15-102); IGG SUBCLASS 4 31 mg/dL (2-96); IGGS - IGG SERUM 788 mg/dL (700-1600); IMMUNOGLOBULIN E 4 IU/mL (6-495)
[2019-09-08 13:01] VITALS: BP 165/66
--- NOTE | 2019-09-08 16:12 | NUR ---
OT NOTE: PT COMPLETED SIT TO STAND AND SITTING BALANCE WITH SPV. PT COMPLETED BUE AROM EXS IN CHAIR. NURSING STATED TO HOLD ON WALKING SECONDARY TO EDEMA IN ANKLE. 120-143 THANK YOU, ANGELICA HERNANDEZ
[2019-09-08 16:55] VITALS: BP 150/66
--- NOTE | 2019-09-08 19:00 | NUR ---
EVENING ROUNDS COMPLETE, PT SITTING UP IN CHAIR. FAMILY AT BEDSIDE. NO SIGNS OF DISTRESS. AAOX4. PT DENIES ANY PAIN OR NEEDS AT THIS TIME. CL IN REACH.
[2019-09-08 20:30] VITALS: BP 180/84
[2019-09-09 00:30] VITALS: BP 178/77
[2019-09-09 04:30] VITALS: BP 186/81
[2019-09-09 06:59] LABS: BASOPHILS 0.5 % (0-2); EOSINOPHILS 2.5 % (0-7); HEMATOCRIT 28.6 % (42.0-54.0); IMMATURE GRANULOCYTES 0.6 % (0-5); LYMPHOCYTES 20.6 % (15-50); MCHC 31.5 g/dL (31.0-37.0); MCV 95.3 fL (80.0-100.0); MEAN PLATELET VOLUME 8.6 fL (7.4-10.4); NEUTROPHILS 67.8 % (40-80); PLATELET COUNT 284 10x3/uL (130-400); RDW 13.9 % (11.5-14.5); WBC 6.5 10x3/uL (4.8-10.8)
--- NOTE | 2019-09-09 07:26 | NUR ---
REPORT RECEIVED. WILL CONTINUE WITH POC. PT CURRENTLY SITTING UP IN CHAIR. CALL LIGHT W/I REACH. FAMILY AT BEDSIDE. RR EVEN AND UNLABORED ON 4L 02. R.HAND PIV IS SALINE LOCKED. NO S/S OF DISTRESS NOTED. PT DENIES ANY NEEDS AT THIS TIME. WILL CTM.
[2019-09-09 07:38] LABS: ALBUMIN 3.3 g/dL (3.4-5.0); ANION GAP 8.9 mmol/L (8-16); BILIRUBIN - TOTAL 0.22 mg/dL (0.2-1.3); CALCIUM 9.1 mg/dL (8.5-10.1); CARBON DIOXIDE 31.7 mmol/L (21.0-32.0); CREATININE - SERUM 3.2 mg/dL (0.6-1.3); POTASSIUM - SERUM 3.6 mmol/L (3.5-5.1); PROTEIN - SERUM 6.7 g/dL (6.4-8.2)
[2019-09-09 09:58] VITALS: BP 187/75
[2019-09-09 14:40] VITALS: BP 162/70
--- NOTE | 2019-09-09 15:30 | NUR ---
I have reviewed this patient and I concur with the Shift Assessment completed by the Licensed Practical Nurse today this shift.
--- NOTE | 2019-09-09 15:38 | NUR ---
Nutrition Follow-up: Eating well. Denies N/V/C/D. Diet: Renal ADA PO intake: 50-100% Wt: 213# (09/07) Last BM; 09/09 Labs noted: GFR 21, Glu 123, Alb 3.3 Meds noted: Colace, Remeron -Continue current diet as tolerated. -Need new wt; noted daily wts ordered. -RD following.
[2019-09-09 17:32] VITALS: BP 198/88
--- NOTE | 2019-09-09 17:34 | NUR ---
BLOOD PRESSURE TREATED WITH ORDERED DOSE OF CLONIDINE. WILL RECHECK IN 30 MINUTES. WILL CTM.
--- NOTE | 2019-09-09 18:00 | NUR ---
BP REMAINS 198/74. ADMININSTERED ORDERED DOSE OF HYDRALIZINE. WILL CTM.
--- NOTE | 2019-09-09 18:28 | NUR ---
BP DOWN TO 175/82. WILL CTM.
[2019-09-09 20:45] VITALS: BP 198/78
[2019-09-10 01:05] VITALS: BP 148/67
[2019-09-10 04:45] VITALS: BP 172/77
[2019-09-10 05:25] LABS: BASOPHILS 0.2 % (0-2); EOSINOPHILS 2.1 % (0-7); HEMATOCRIT 28.4 % (42.0-54.0); IMMATURE GRANULOCYTES 0.4 % (0-5); LYMPHOCYTES 14.7 % (15-50); MCHC 31.7 g/dL (31.0-37.0); MCV 94.7 fL (80.0-100.0); MEAN PLATELET VOLUME 8.5 fL (7.4-10.4); MONOCYTES 6.7 % (2-11); NEUTROPHILS 75.9 % (40-80); PLATELET COUNT 280 10x3/uL (130-400); RDW 13.7 % (11.5-14.5)
[2019-09-10 05:52] LABS: ALBUMIN 3.2 g/dL (3.4-5.0); ANION GAP 10.8 mmol/L (8-16); BILIRUBIN - TOTAL 0.26 mg/dL (0.2-1.3); CALCIUM 8.8 mg/dL (8.5-10.1); CARBON DIOXIDE 29.7 mmol/L (21.0-32.0); CREATININE - SERUM 2.8 mg/dL (0.6-1.3); POTASSIUM - SERUM 3.5 mmol/L (3.5-5.1); PROTEIN - SERUM 6.4 g/dL (6.4-8.2)
--- NOTE | 2019-09-10 09:49 | NUR ---
UP WALKING WITH P.T. WITH WALKER.
[2019-09-10 10:21] VITALS: BP 158/83
--- NOTE | 2019-09-10 12:57 | NUR ---
CALLED AND SPOKE WITH ANTHONY ROBERTSON AND STATED TO HER JORGE ROBERTSON AND DR. MURPHY PLACED A DISCHARGE ORDER TO SEND PT REHAB TODAY EVEN THOUGH DR. LANZA'S NOTE SAYS SHE WANTS TO WAIT ATLEAST ANOTHER TWO DAYS. SHE STATES "OH NO. WE DO NOT WANT HIM TO DC AND GO TO REHAB TODAY." I STATED TO HER DR. MURPHY AND JORGE ROBERTSON TOLD [facility] SOCIAL WORKER AND THIS NURSE THAT THEY "OVER RULE CONSULTING DOCTORS AND THEY CAN DC PATIENTS WITHOUT THEM SIGNING OFF." SHE STATES "WELL I GUESS THEY COULD DO THAT BUT NO WE DO NOT APPROVE OF HIM LEAVING AND DO NOT WANT HIM TO. IF THEY DISCARGE HIM CALL ME AND LET ME KNOW AND I WILL LET DR. LANZA KNOW THEY ARE TRYING TO DISCHARGE PT." I VERBALIZED UNDERSTANDING.
--- NOTE | 2019-09-10 13:08 | NUR ---
SPOKE WITH DR. BARRERA AND SHE ASKED WHAT PT'S BP WAS AFTER NEW BP MEDS SHE ORDERED. I STATED BEFORE THE MEDS IT WAS 158/83 AND THIS AFTERNOON IT IS 159/93. SHE SHE STATES "I WANT TO WATCH HIM UP ON THIS FLOOR AT LEAST UNTIL SUNDAY SINCE I JUST READJUSTED HIS BLOOD PRESSURE MEDICATIONS." I VERBALIZED UNDERSTANDING.
--- NOTE | 2019-09-10 13:16 | NUR ---
SPOKE WITH JO-ANN HAMILTON NURSE BATTERY TEST ENGINEER ABOUT PT AND WHAT DR. LANZA WANTS. SHE STATES IN THE MEETING TODAY DR. MURPHY STATED HE "DOESN'T CARE WHAT THE CONSULTING DOCTORS WANTS AND THAT HE IS TRUMPING THEM AND IS DISCHARGING THESE PATIENTS." CALLED AND LEFT MESSAGE WITH ANTHONY ROBERTSON ABOUT THIS CONVERSATION I HAD AND TO LET HER KNOW TO LET DR. LANZA KNOW. PT IS DC'ING TODAY.
--- NOTE | 2019-09-10 14:51 | NUR ---
OT NOTE: PT PERFORMED WELL TODAY. EDEMA IN FEET MUCH IMPROVED TODAY. SIT TO STAND WITH MIN ASSIST; IN ROOM AMB WITH 02, WALKER, AND MIN ASSIST. UE ADLS WITH MIN/SET UP; MOD ASSIST WITH LE DRESSING; TOILETING WITH MIN ASSIST. TRICEP STRENGTHENING TO INCLUDE CHAIR PUSH UPS WITH MIN ASSIST. PT REPORTS FEELING MUCH BETTER TODAY. RECOMMEND IP REHAB EUSEBIA FARLEY, OTR/L [phone]
[2019-09-10 14:52] VITALS: BP 159/94
--- NOTE | 2019-09-10 16:23 | MORECARE ---
CASE MANAGEMENT DISCHARGE SUMMARY PATIENT: SAMIRA GARCIA UNIT: [id number] ADM DATE: 08/31/19 AGE: 69 : 50 SEX: M ROOM/BED: D.2134 AUTHOR: BABAK VINSON PHYSICIAN: REFERRING PHYSICIAN: JUNIOR DELGADO MD DATE OF SERVICE: 09/10/19 Discharge Plan Patient Name: SAMIRA GARCIA Facility: [facility]:Trade : 1950 Planned Disposition: Inpatient Rehab Anticipated Discharge Date: 09/10/19 Discharge Date: Expected LOS: 10 Initial Reviewer: [email or web address] Initial Review Date: 09/02/2019 Generated: 09/10/19 5:23 pm Comments DCP- Discharge Planning Updated by [email or web address]: Dk Koch on 09/10/19 3:[address] Patient Name: SAMIRA GARCIA Encounter No: [id number] : 1950 Primary Insurance: MEDICARE A & B Anticipated DC Date: 09-10-2019 Planned Disposition: Inpatient Rehab External Planned Provider: [facility] INPATIENT [facility] DCP follow-up note: CM RECEIVED DISCHARGE ORDERS, SPOKE TO [facility]PATIENT [facility], THEY PLAN TO ACCEPT PT TODAY FOR REHAB. PT NOTIFIED, IN AGREEMENT WITH DISCHARGE TO INPATIENT REHAB AFTER SPEAKING TO DR. MURPHY. IMPORTANT MESSAGE FROM MEDICARE PROVIDED AND EXPLAINED. [facility] INPATIENT [facility] TO CONTACT MED 2 NURSE WITH ROOM NUMBER WHEN READY TO ACCEPT PT AND NURSE REPORT. BREEZY Marcelo DCP- Discharge Planning Updated by [id number]: Dk Koch on 09/02/19 3:[address] Patient Name: SAMIRA GARCIA Admission Status: ER Accout number: [id number] Admission Date: 08-31-2019 : 1950 Admission Diagnosis: Attending: JUNIOR DELGADO Current LOS: 2 Anticipated DC Date: 09-02-2019 Planned Disposition: Inpatient Rehab Primary Insurance: MEDICARE A & B PLANNED EXTERNAL PROVIDER: [facility] INPAT[facility] Discharge Planning Comments: CM RECEIVED ORDER FOR INPATIENT REHAB PRESCREENING. CM MET WITH PT AND ALEKSANDER DIAS, IN ROOM TO DISCUSS DISCHARGE PLANNING AND NEEDS.SAMIRA GARCIA provided verbal consent to discuss current and ongoing needs with/in the presence of: SISTER ALEKSANDER. PT REPORTS LIVING AT HOME INDEPENDENTLY AND ALONE WITH HIS SISTER CHECKING ON HIM EVERY DAY. PT [place] WITH NO MEDICAL EQUIPMENT PROVIDER PRFERENCE. PT HAS NO OUTSIDE SERVICES ASSISTING IN THE HOME. CM DISCUSSED AVAILABILITY OF HOME HEALTH, REHAB SERVICES AND MEDICAL EQUIPMENT. PT KNOWS HE NEEDS REHAB WITH PLAN TO GO HOME AFTER REHAB. CM DISCUSSED REHAB OPTIONS, LOCATIONS AND PROVIDERS. PT WOULD LIKE TO "STAY HERE" FOR REHAB. CHOICE SIGNED. IMPORTANT MESSAGE FROM MEDICARE PROVIDED AND EXPLAINED. CM MET WITH CARE TEAM AT INTERDISCIPLINARY TEAM MEETING, MARCELO NIEVES IS OK WITH DISCHARGE TO REHAB TODAY IF OK WITH RENAL GROUP. [facility]PATIENT [facility] REPORTS THEY CAN ACCEPT TODAY IF STABLE FOR DISCHARGE TO REHAB. CM LATER CALLED TO ROOM BY PT'S SISTER ALEKSANDER, MET WITH PT AND SISTER IN ROOM. PT'S SISTER REPORTS CONCERN ABOUT GOING TO REHAB WITHOUT DR GLOVER TAKING CARE OF PT'S MEDICATIONS SHE DOES NOT WANT THEM TO GET MESSED UP AGAIN LIKE THEY DID AT THE OTHER HOSPITAL. CM REVIEWED CHART AND EXPLAINED THAT DR. DE DID ROUND FOR DR. GLOVER TODAY AND THAT IF PT NEEDS RENAL FOLLOW UP WHILE IN REHAB, PT CAN STILL HAVE RENAL DOCTOR FOLLOWING THERE. CM EXPLAINED THE REHAB BEING A MEDICALLY BASED REHAB AND ALL AVAILABLE SERVICES AND ALSO THAT ALL DOCTORS TREATING WILL HAVE TO AGREE FOR DISCHARGE TO REHAB. THEY ASKED TO SEE THE DOCTOR. CM NOTIFIED MARCELO NIEVES WHO INFORMED CM THAT DR. SANDERS WILL ROUND SHORTLY. PT PLANS TO DISCHARGE TO INPATIENT REHAB AT [place]. INPATIENT REHAB AT [place] PLANS TO ACCEPT; NOTIFY REHAB WHEN DISCHARGE ORDER IS RECEIVED FOR FUTHER INSTRUCTIONS FOR ADMISSION TO REHAB. Wood Piler: Dk Koch Appended by Dk Koch on 09/02/2019 16:50 CRUDE UNIT OPERATOR: CM RECEIVED CALL FROM [facility] INPATIENT REH[facility] AT [place], PT HAS BEEN ACCEPTED AND IF DISCHARGED TONIGHT TO INPATIENT REHAB, HE WILL ADMIT TO ROOM 1114-B AFTER NURSE REPORT IS CALLED. CM WAITING DISCHARGE ORDERS TO INPATIENT REHAB. DK KOCH, CASE MANAGEMENT DCPIA - Discharge Planning Initial Assessment Updated by [id number]: Dk Koch on 09/02/19 4:17 pm * Is the patient Alert and Oriented? Yes * How many steps to enter\\exit or inside your home? * PCP DR. AVERY * Pharmacy [facility] OR [facility] MA[facility] ORDER * Preadmission Environment Home Alone * ADLs Independent * Equipment Cane * Other Equipment NO MEDICAL EQUIPMENT PROVIDER PRERERENCE * List name and contact numbers for known caregivers / representatives who currently or will assist patient after discharge: ALEKSANDER PERRIN, SISTER, * Verbal permission to speak to the caregivers and representatives has been obtained from the patient. Yes * Community resources currently utilized None * Please name any agencies selected above. NONE * Additional services required to return to the preadmission environment? Yes * Can the patient safely return to the preadmission environment? Yes * Has this patient been hospitalized within the prior 30 days at any hospital? Yes Coverage Notice Reviewer: [email or web address] Koch Notice Issued Date-Time: 09/02/2019 9:55 Notice Type: Patient Choice Letter Notice Delivered To: Patient Relationship to Patient: Safety Technician Name: Delivery Method: HAND - Hand Delivered Janett Days: Prior Verbal Notification: Recipient Understood Notice: Yes Recipient Signature: Yes Med Rec Note Co-signed by Attending: Coverage Notice Comment: [facility] Reviewer: [id number] Ryanne Koch Notice Issued Date-Time: 09/10/2019 13:05 Notice Type: IM Discharge Notice Notice Delivered To: Patient Relationship to Patient: Safety Technician Name: Delivery Method: HAND - Hand Delivered Janett Days: Prior Verbal Notification: Recipient Understood Notice: Yes Recipient Signature: Yes Med Rec Note Co-signed by Attending: Coverage Notice Comment: Last DP export: 09/02/19 3:56 pm Patient Name: SAMIRA GARCIA Page [id number] at 1623 All edits/amendments must be made on the electronic document DICTATION DATE: 09/10/19 162 MARK UP DESIGNER: ASAEL 09/10/19 162 RPT#: [id number] DC DATE: STATUS: ADM IN [facility] [address] [place] [address] END OF REPORT
--- NOTE | 2019-09-10 16:33 | NUR ---
REPORT GIVEN TO CHIDI HAMILTON IN REHAB.
--- NOTE | 2019-09-10 16:51 | NUR ---
DISCHARGE INSTRUCTIONS GIVEN TO PT AND PT'S SISTER. THEY HAVE NO FURHTER QUESTIONS. CHART COPY SIGNED. PT TAKEN TO REHAB ROOM 1111-B VIA WC BY ADHESION TESTER ACCOMPANIED BY SISTER.
--- NOTE | 2019-09-10 17:52 | NUR ---
CHIDI/RN WITH REHAB CALLED TO ADVISE PATIENT'S DISCHARGE MEDICATION LIST INCLUDED LITHIUM AND DID NOT INCLUDE DEPAKOTE. SHE ALSO STATED THAT DISCHARGE MEDICATION LIST WAS NOT MATCHING WITH THE MAR THAT PATIENT HAD ON MED 2. I ADVISED I WOULD CALL DR. MURPHY. PER DR. MURPHY VIA PHONE, HE WANTED PATIENT ON THE MEDICATIONS THAT DR. BACK ORDERED. I ADVISED THAT WAS THE DEPAKOTE DR 250MG PO BID AND NOT THE LITHIUM. HE ADVISED TO DC LITHIUM AND ADD THE DEPAKOTE DR 250MG BID. REGARDING THE OTHER MEDICATIONS, DR. MURPHY ADVISED TO NOT CHANGE AND TO HAVE REHAB NURSE CALL HIM DIRECTLY TO DISCUSS MEDICATIONS THE MEDICATION LIST HE DISCHARGED PATIENT ON IS WHAT HE WANTS PATIENT TO BE ON. I CALLED BACK TO REHAB AND SPOKE WITH MODESTO/RN, PATIENTS NURSED WHO WILL DC THE LITHIUM AND ADD THE DEPAKOTE BUT THAT DR. FULTON/RENAL ADVISED TO NOT START ANY MEDICATIONS UNTIL SHE ARRIVED AND REVIEWED THE MEDICATIONS.
== END 2019-09-10 16:52 | DRG 177 ==
LOC: D.ER 02:39 → D.M2 05:56
PROVIDERS: Family Medicine; Internal Medicine; Internal Medicine Pulmonary Disease; ADMIT Emergency Medicine; ATTEND Emergency Medicine
DX: J15.212 Pneumonia due to Methicillin resistant Staphylococcus aureus (principal); I50.31 Acute diastolic (congestive) heart failure; N17.9 Acute kidney failure, unspecified; E87.1 Hypo-osmolality and hyponatremia; E11.22 Type 2 diabetes mellitus with diabetic chronic kidney disease; I12.9 Hypertensive chronic kidney disease with stage 1 through stage 4 chronic kidney disease, or unspecified chronic kidney disease; E86.0 Dehydration; E11.65 Type 2 diabetes mellitus with hyperglycemia; E03.9 Hypothyroidism, unspecified; K21.9 Gastro-esophageal reflux disease without esophagitis; N40.0 Benign prostatic hyperplasia without lower urinary tract symptoms; D63.1 Anemia in chronic kidney disease; S16.1XXA Strain of muscle, fascia and tendon at neck level, initial encounter; W19.XXXA Unspecified fall, initial encounter; F31.9 Bipolar disorder, unspecified; N18.3 Chronic kidney disease, stage 3 (moderate); J15.6 Pneumonia due to other Gram-negative bacteria

== ENCOUNTER 2019-09-10 15:30 | Inpatient (IN) | payer MEDICARE ==
[~2019-09-10] VITALS: Ht 170.2 cm; Wt 93.9 kg
[~2019-09-10 15:30] MED LIST changes: +ALDACTONE25 MG PO; +B12 INJECTION; +BENICAR40 MG PO; +CARDURA4 MG PO; +FERROUS SULFAT325 MG PO; +HYDRALAZINE HC100 MG PO; +ISOSORBIDE MONO20 MG PO; +KRILL OIL 1,001 EAC1 PO; +LONITEN2.5 MG PO; +SPIRIVA RESPIMAT4 G1 INH; +UNITHROID50 MCG PO
[2019-09-10 17:09] VITALS: BP 175/84; BMI 32.5
[2019-09-10 20:00] VITALS: BP 175/84
[2019-09-10 20:15] VITALS: BP 175/84
--- NOTE | 2019-09-10 20:19 | NUR ---
AWAKE AND ALERT. RESTING IN WHEELCHAIR IN ROOM TALKING WITH SISTER. SIGNED ADMISSION PAPER WORK. RESPIRATIONS UNALBORED ON O2/2L PER NASAL CANNULA. STATES HE HAS HAD SOME HIGH BLOOD PRESSURE. PHARMACIST TO TALK WITH DR TO CLARIFY ORDERS.
--- NOTE | 2019-09-11 03:26 | NUR ---
RESTING IN BED WIHT RESPIRATIONS UNLABORED. NO DISTRESS NOTED. CALL LIGHT IN REACH.
--- NOTE | 2019-09-11 05:05 | NUR ---
QUIET HOURS. RESTING IN BED WITH NO ACUTE DISTRESS NOTED. NO CHANGES IN CONDITION THIS SHIFT.
[2019-09-11 06:47] LABS: BASOPHILS 0.3 % (0-2); EOSINOPHILS 2.7 % (0-7); HEMATOCRIT 33.2 % (42.0-54.0); HEMOGLOBIN 10.4 g/dL (13.5-17.5); IMMATURE GRANULOCYTES 0.4 % (0-5); LYMPHOCYTES 20.8 % (15-50); MCH 29.7 pg (26.0-34.0); MCHC 31.3 g/dL (31.0-37.0); MCV 94.9 fL (80.0-100.0); MEAN PLATELET VOLUME 8.6 fL (7.4-10.4); MONOCYTES 8.8 % (2-11); PLATELET COUNT 290 10x3/uL (130-400); RDW 13.6 % (11.5-14.5)
[2019-09-11 06:49] LABS: ANION GAP 10.3 mmol/L (8-16); CALCIUM 9.8 mg/dL (8.5-10.1); CARBON DIOXIDE 30.4 mmol/L (21.0-32.0); CREATININE - SERUM 2.6 mg/dL (0.6-1.3); MAGNESIUM - SERUM 2.3 mg/dL (1.8-2.4); PHOSPHOROUS 3.5 mg/dL (2.5-4.9); POTASSIUM - SERUM 3.7 mmol/L (3.5-5.1)
[2019-09-11 06:58] LABS: WBC 6.7 10x3/uL (4.8-10.8)
--- NOTE | 2019-09-11 07:49 | NUR ---
PATIENT IS ALERT/ORIENT. CALL LIGHT WITHIN REACH. VOICES NO NEEDS AT THIS TIME. WILL CONTINUE WITH PLAN OF CARE
[2019-09-11 08:09] VITALS: BP 188/85
--- NOTE | 2019-09-11 09:55 | NUR ---
DR LANZA INTO SEE PATIENT. NEW ORDERS RECEIVED
--- NOTE | 2019-09-11 13:08 | NUR ---
SITTING UP IN CHAIR.CL IN REACH.
[2019-09-11 13:55] VITALS: Ht 170.2 cm; Wt 93.9 kg
--- NOTE | 2019-09-11 15:05 | NUR ---
PRN ATIVAN GIVEN FOR AXIETY PER PATIENT REQUEST
[2019-09-11 18:06] VITALS: BP 183/86
--- NOTE | 2019-09-11 19:07 | NUR ---
GREETED PATIENT AND INTRODUCED MYSELF HIS NURSE. PATIENT IS SITTING IN THE CHAIR WITH FAMILY MEMBERS PRESENT IN ROOM. RESPIRATIONS EVEN. NO S/S OF DISTRESS. O2 AT 2L IN USE VIA NC. CALL LIGHT IN REACH.
[2019-09-12] VITALS (10 sets, daily range): BP systolic 156–198; BP diastolic 78–90
--- NOTE | 2019-09-12 00:22 | NUR ---
CONTACTED DR. ADORNO OFFICE TO INFORM OF INCREASED BLOOD PRESSURE AND ASK IF IV APRESOLINE COULD BE CHANGED TO PO.
--- NOTE | 2019-09-12 00:36 | NUR ---
SPOKE WITH DR. CARABALLO CONCERNING PTS. BLOOD PRESSURE OF 198/90. REVIEWED PTS. HP AND CURRENT MEDICATIONS WITH PHYSICIAN. PT. DIDNT HAVE IV ACCESS AND NEEDED AN ORDER FOR PO APRESOLINE. INSTRUCTED TO PUT A ONE TIME ORDER OF APRESOLINE OF 25 MG AND TO RECHECK BLOOD PRESSURE IN ONE HOUR AND TO REPEAT DOSAGE OF 25 MG IF BLOOD PRESSURE WAS GREATER THAN 170/105 AFTER INTIAL DOSAGE. WCTM.
--- NOTE | 2019-09-12 01:50 | NUR ---
PTS. MANUAL BLOOD PRESSURE 198/88. WILL RECHECK AT 0206.
--- NOTE | 2019-09-12 02:23 | NUR ---
BLOOD PRESSURE RECHECKED MANUALLY - BP 182/[address] RICHARDS INSTRUCTIONS WILL ADMINISTER SECOND DOSE 25 MG OF APRESOLINE. TM.
--- NOTE | 2019-09-12 03:30 | NUR ---
PT. MANUAL BLOOD PRESSURE AFTER SECOND DOSE OF 25 MG OF APRESOLINE 168/78. WCTM.
--- NOTE | 2019-09-12 05:50 | NUR ---
PT. AWAKE AND SITTING IN CHAIR AT THIS TIME WATCHING TV. RESPIRATIONS EVEN. NO S/S OF DISTRESS. O2 AT 2L IN USE VIA NC. CALL LIGHT IN REACH.
--- NOTE | 2019-09-12 06:08 | NUR ---
RECHECKED PTS. BLOOD PRESSURE USING MANUAL - BP 175/80. WCTM.
[2019-09-12 07:08] LABS: CALCIUM 9.9 mg/dL (8.5-10.1); CARBON DIOXIDE 30.3 mmol/L (21.0-32.0); CREATININE - SERUM 2.6 mg/dL (0.6-1.3); POTASSIUM - SERUM 3.3 mmol/L (3.5-5.1)
[2019-09-12 07:11] LABS: BASOPHILS 0.2 % (0-2); EOSINOPHILS 1.8 % (0-7); HEMATOCRIT 33.9 % (42.0-54.0); HEMOGLOBIN 10.8 g/dL (13.5-17.5); IMMATURE GRANULOCYTES 0.6 % (0-5); LYMPHOCYTES 12.2 % (15-50); MCH 30.3 pg (26.0-34.0); MCHC 31.9 g/dL (31.0-37.0); MEAN PLATELET VOLUME 8.5 fL (7.4-10.4); NEUTROPHILS 78.2 % (40-80); PLATELET COUNT 276 10x3/uL (130-400); RBC 3.57 10x6/uL (4.20-6.10); RDW 13.5 % (11.5-14.5)
[2019-09-12 07:19] LABS: WBC 9.1 10x3/uL (4.8-10.8)
--- NOTE | 2019-09-12 08:00 | NUR ---
PT RESTING IN BED WITH EYES OPEN CALL LIGHT IN REACH WATCHING TV NO PROBLEMS WILL MONITER
--- NOTE | 2019-09-12 08:00 | NUR ---
PT RESTING IN BED WITH EYES OPEN CALL LIGHT IN REACH WILL MONITER
--- NOTE | 2019-09-12 12:25 | NUR ---
PATIENT ADMITTED TO REHAB FROM ACUTE FLOOR. HIS PCP IS . DME AT HOME IS A CANE. PATIENT PLANS TO DISCHARGE BACK HOME WHERE HIS SISTERS CHECK ON HIM DAILY. WILL CONTINUE TO FOLLOW WITH PATIENT.
--- NOTE | 2019-09-12 19:54 | NUR ---
PT RESTING IN A CHAIR AT HIS BEDSIDE WATCHING TV. ALERT AND ORIENTED X 3. VOICED COMPLAINT OF FREQUENT VOIDING. STATES HE WAS STARTED ON A NEW MEDICATION TODAY. ALREADY TREATED FOR HYPERTENTION. WILL MONITOR CLOSELY. CALL LIGHT AND BEDSIDE TABLE ARE WITHIN EASY REACH.
--- NOTE | 2019-09-12 21:56 | NUR ---
PT RESTING IN BED WITH EYES OPEN. NO NEEDS VOICED.
--- NOTE | 2019-09-12 22:56 | NUR ---
I have reviewed this patient and I concur with the Shift Assessment completed by the Licensed Practical Nurse today this shift.
--- NOTE | 2019-09-13 01:00 | NUR ---
PT RESTING IN CHAIR AT BEDSIDE. HE IS RESTLESS TONIGHT, AND GOING FROM BED TO CHAIR OFTEN. NO SPECIFIC COMPLAINTS VOICED.
--- NOTE | 2019-09-13 03:07 | NUR ---
PT RESTING IN BED WITH EYES CLOSED.
--- NOTE | 2019-09-13 05:03 | NUR ---
RESTING IN BED WITH EYES OPEN.
--- NOTE | 2019-09-13 05:50 | NUR ---
CALL RECIEVED FROM DR LANZA TO CHECK ON PTS BLOOD PRESSURE. NO NEW ORDERS AT THIS TIME.
[2019-09-13 05:58] VITALS: BP 199/85
--- NOTE | 2019-09-13 08:15 | NUR ---
PT UP IN CHAIR IN ROOM STATING HIS HEAD HURTS AND HE DID NOT SLEEP WELL. WILL GIVE PT PAIN MEDS ORDERED AND MONITER
[2019-09-13 08:23] VITALS: BP 185/83
[2019-09-13 12:09] VITALS: BP 162/84
--- NOTE | 2019-09-13 15:00 | NUR ---
PT COMPLAINING OF BEING HOT HE IS DISORENTATED TO WHERE HE IS TEMP CHECKED IT IS 100.9 ORALLY. WILL NOTIFY OF CHANGE
[2019-09-13 15:18] LABS: ANION GAP 11.4 mmol/L (8-16); CALCIUM 9.1 mg/dL (8.5-10.1); CARBON DIOXIDE 29.8 mmol/L (21.0-32.0); CREATININE - SERUM 2.6 mg/dL (0.6-1.3); POTASSIUM - SERUM 3.2 mmol/L (3.5-5.1)
--- NOTE | 2019-09-13 15:20 | NUR ---
IRAIDA NOTIFIED OF CHANGES ORDER FOR RAPID FLU AND RAPID STREP.
[2019-09-13 16:15] LABS: APPEARANCE CLEAR (CLEAR); BILIRUBIN NEGATIVE (NEGATIVE); COLOR YELLOW (YELLOW); GLUCOSE NEGATIVE (NEGATIVE); KETONE NEGATIVE (NEGATIVE); NITRITE NEGATIVE (NEGATIVE); PROTEIN NEGATIVE (NEGATIVE); UROBILINOGEN NORMAL (NORMAL)
--- NOTE | 2019-09-13 16:15 | NUR ---
PT IS FLU A TYPE A POSITIVE DR KHOURY NOTIFIED LEFT VOICEMAIL WILL WAIT FOR RETURN CALL
--- NOTE | 2019-09-13 16:45 | NUR ---
DR KHOURY NOTIFIED AGAIN LEFT MESSAGE.
--- NOTE | 2019-09-13 16:50 | NUR ---
DR KHOURY CALLED AGAIN LEFT MESSAGE
--- NOTE | 2019-09-13 17:40 | NUR ---
DR KHOURY CALLED BACK SISTER AT DESK WANTING BROTHER TO BE MOVED TO ACUTE CARE FOR THE FLU IRAIDA CALLED AND TALKED TO SISTER AND TOLD HERE THAT HE WOULD ORDER TAMIFLU FOR PT BUT DID NOT MEET CRITERA TO BE MOVED TO THE ACUTE FLOOR
[2019-09-13 18:08] VITALS: BP 174/78
--- NOTE | 2019-09-13 20:00 | NUR ---
PT IS RESTING IN BED WITH EYES OPEN. ALERT AND ORIENTED X 3. HE VOICED COMPLAINT OF GENERALIZED WEAKNESS EVERYWHERE, AND JUST "NOT FEELING GOOD" ASSISTED TO THE BATHROOM WITH CGA. VOIDED WITHOUT DIFFICULTY. FLU PRECAUTIONS OBSERVED. SISTER IS AT BEDSIDE. SR'S ARE UP X 2 IN BED. CALL LIGHT AND BEDSIDE TABLE ARE WITHIN EASY REACH.
--- NOTE | 2019-09-13 22:56 | NUR ---
PT IS RESTING IN BED WITH EYES CLOSED. NO ACUTE DISTRESS NOTED.
[2019-09-14 00:05] VITALS: BP 179/84
--- NOTE | 2019-09-14 00:14 | NUR ---
I have reviewed this patient and I concur with the Shift Assessment completed by the Licensed Practical Nurse today this shift.
[2019-09-14 05:27] VITALS: BP 182/84
--- NOTE | 2019-09-14 06:02 | NUR ---
PT SITTING IN A CHAIR IN HIS ROOM. STATED: "MY BUTT COULDNT TAKE ANY MORE OF THAT BED RIGHT NOW.
[2019-09-14 07:38] VITALS: BP 144/72
--- NOTE | 2019-09-14 09:27 | NUR ---
PATIENT REMAINS IN DROPLET ISOLATION. ALERT/ORIENT. CALL LIGHT WITHIN REACH. VOICES NO NEEDS AT THIS TIME. WILL CONTINUE WITH PLAN OF CARE
[2019-09-14 12:06] VITALS: BP 126/69
[2019-09-14 17:51] VITALS: BP 107/59
--- NOTE | 2019-09-14 18:31 | NUR ---
DR LANZA RN CALLED. STATED TO HOLD ALDACTONE, BENICAR, CARDURA, AND CATAPRESS DOSE FOR TONIGHT. GIVEN PRN B/P MEDICATION IF B/P IS HIGH
--- NOTE | 2019-09-14 19:20 | NUR ---
PT IS SITTING IN A CHAIR IN HIS ROOM WATCHING TV. ALERT AND ORIENTED X 3. DENIES ACUTE DISCOMFORT AT THIS TIME. PT STATES: " I STILL DONT FEEL GOOD, BUT MAYBE A LITTLE BETTER." NO NEEDS VOICED AT THIS TIME. SISTER IS AT BEDSIDE. SR'S ARE UP X 3 IN BED. CALL LIGHT AND BEDSIDE TABLE ARE WITHIN EASY REACH. BED ALARM IN USE.
[2019-09-14 20:18] VITALS: BP 135/64
--- NOTE | 2019-09-14 22:36 | NUR ---
PT ASSISTED TO THE BATHROOM WITH CGA. NO FURTHER NEEDS VOICED.
[2019-09-15 00:01] VITALS: BP 161/75
--- NOTE | 2019-09-15 01:16 | NUR ---
PT RESTING QUIETLY IN BED WITH EYES CLOSED. NO ACUTE DISTRESS NOTED.
--- NOTE | 2019-09-15 01:24 | NUR ---
I have reviewed this patient and I concur with the Shift Assessment completed by the Licensed Practical Nurse today this shift.
[2019-09-15 05:12] VITALS: BP 169/80
--- NOTE | 2019-09-15 05:13 | NUR ---
PT ASSISTED TO THE BATHROOM AND BACK TO BED. VSS. PT IS COUGHING UP LARGE AMOUNTS OF CLEAR SPUTUM. LEFT UPPER LUNG HAS COURSE LUNG SOUNDS. ALL OTHER LOBES CLEAR.
[2019-09-15 06:01] LABS: BASOPHILS 0.3 % (0-2); EOSINOPHILS 0.4 % (0-7); HEMATOCRIT 30.8 % (42.0-54.0); HEMOGLOBIN 9.8 g/dL (13.5-17.5); IMMATURE GRANULOCYTES 0.3 % (0-5); MCH 29.9 pg (26.0-34.0); MCHC 31.8 g/dL (31.0-37.0); MCV 93.9 fL (80.0-100.0); MEAN PLATELET VOLUME 8.6 fL (7.4-10.4); MONOCYTES 12.9 % (2-11); NEUTROPHILS 75.1 % (40-80); PLATELET COUNT 229 10x3/uL (130-400); RBC 3.28 10x6/uL (4.20-6.10); RDW 13.9 % (11.5-14.5); WBC 7.6 10x3/uL (4.8-10.8)
[2019-09-15 06:15] LABS: ANION GAP 13.9 mmol/L (8-16); CALCIUM 9.5 mg/dL (8.5-10.1); CARBON DIOXIDE 28.2 mmol/L (21.0-32.0); CREATININE - SERUM 2.9 mg/dL (0.6-1.3); POTASSIUM - SERUM 3.1 mmol/L (3.5-5.1)
--- NOTE | 2019-09-15 08:00 | NUR ---
PATIENT IN DROPLET ISOLOATION. ALERT/ORIENT. CALL LIGHT WITHIN REACH. VOICES NO NEEDS AT THIS TIME. WILL CONTINUE WITH PLAN OF CARE
--- NOTE | 2019-09-15 10:05 | NUR ---
PATIENT IN REHAB ROOM. WORKING WITH OCCUPATIONAL THERAPIST. DROPLET ISOLATION MAINTAINED. PATIENT DENIES ANY PAIN/DISC AT THIS TIME.
[2019-09-15 11:50] VITALS: BP 138/64
--- NOTE | 2019-09-15 13:21 | RHP ---
PATIENT: SAMIRA GARCIA MEDICAL RECORD: [id number] ACCOUNT: [id number] LOCATION:[facility] : 50 ADMISSION DATE: 09/10/19 REHABILITATION HISTORY AND PHYSICAL EXAMINATION POST ADMISSION PHYSICIAN EXAMINATION ADMITTING DIAGNOSIS: Disuse myopathy. HISTORY OF PRESENT ILLNESS: The patient is a 69-year-old gentleman who presented to ED on 08/31/2019 with bilateral shoulder and neck pain after falling and catching himself from the couch at home the previous day. He had no loss of consciousness. No other problems. His shoulder girdle pain was consistent with muscle strain. He had a C-spine done, which showed no obvious changes at that time. The tenderness in his shoulders was pretty severe. He was recently discharged from [facility] and treated for pneumonia and bsviw-ep-mvbbdqu kidney disease. He has had some blood pressure problems in the past. He also had questionable left lower lobe pneumonia with a small pleural effusion. The patient had no osseous abnormalities noted on x-rays of his shoulder either. He did have what appeared to be a little bit of calcification that could be significant for a tendinitis in the past. His baseline creatinine is usually about 2.5. He was found to have a creatinine of 4.4 here. He has been on hypertensive medications. He was admitted for pneumonia, anemia, acute renal failure, cervical strain, trapezius muscle strain. Nephrology was consulted. The patient had appropriate treatment there. He continues to look better and feel better. His blood pressure is still somewhat labile and medications are having to be adjusted for. He has wamas-qh-nmwjimy kidney disease. Etiology is probably from hemodynamically unstable hypertension, also may be a component of lithium toxicity in the past that had been used for bipolar. The patient has also had to be on antitussives, mucolytic agents and BiPAP at times. He has noted progressive generalized weakness, especially in his lower extremities. His tolerance to PT is very bad. He is very fatigued, has limited flexion and extension of his lower extremities. He has got proximal muscle strength that is decreased, mod to max assist for ADLs, mod to max assist for sit to stand and bed to chair. His coordination is intact, but he has significant tremor in both hands. He takes primidone for this. He would like to be able to return home with his prior level of functioning. COMORBIDITIES: Include oropharyngeal dysphagia, hospital-acquired pneumonia, qgymh-fc-nqvbnfs kidney disease, fatigue, weakness, lethargy, dehydration, status post fall, hypertension, history of NM, diabetes, hyperglycemia, hypothyroidism, essential tremor, chronic back pain, BPH, depression, anxiety, bipolar, hyponatremia, anemia, trapezius strain, cervical muscle strain, proximal muscle weakness and recent falls. PAST MEDICAL HISTORY: Significant for tremor, diabetes, thyroid problems, hypertension, skin cancers, NM, acid reflux, bipolar, arthritis, chronic back pain and prostate problems. PAST SURGICAL HISTORY: Includes some surgery on his head and neck. ALLERGIES: SULFA, LISINOPRIL, CODEINE, BUSPAR AND BENADRYL. CURRENT MEDICATIONS: Include Floranex 460 mg daily, spironolactone 25 b.i.d., nifedipine 60 mg b.i.d., Bumex 2 mg b.i.d., Colace 100 mg daily, he is on Lovenox 30 mg subQ daily, he is on clonidine TTS 1 patch, Protonix 40 mg daily, HISTORY AND PHYSICAL [id number] SAMIRA GARCIA Synthroid 88 mcg daily, primidone 50 mg at bedtime, Remeron 60 mg at bedtime, Depakote 250 b.i.d., metoprolol 25 b.i.d., clonidine 0.1 mg t.i.d., Xanax 1 mg t.i.d. p.r.n., he is on Robitussin cough medicine as needed, he is on insulin replacement protocol and also on glucose replacement protocol for low sugar, he is on hydralazine as needed for elevated blood pressures, he is on Cardura 4 mg daily, Tessalon Perles 100 mg t.i.d., Tylenol 650 every 4 hours. HABITS: Does have a history of tobacco use. FAMILY HISTORY: Noncontributory. SOCIAL HISTORY: The patient hopes to return back home and get back to his prior level of functioning. REVIEW OF SYSTEMS: GENERAL: Does complain of some weakness and fatigue. HEENT: Denies cold, cough, or congestion. CARDIOVASCULAR: Denies chest pain. PHYSICAL EXAMINATION: VITAL SIGNS: Stable, consistently elevated systolic blood pressure, diastolic blood pressures have been 85 or less. GENERAL: A well-developed gentleman in no acute distress, alert upon exam. HEENT: Normocephalic and atraumatic. Mucosa moist. NECK: Supple. No lymphadenopathy. LUNGS: Clear in upper medel. No wheezing, rhonchi or rales. HEART: Regular rate and rhythm. No murmurs, rubs or gallops. ABDOMEN: Soft, benign, and nondistended. Positive bowel sounds times 4. EXTREMITIES: No clubbing, cyanosis or edema. NEUROLOGIC: He does have some noted proximal muscle weakness in his quads. LABORATORY DATA: White count 6.7, H&H of 10 and 33 and platelet count is 290. His sodium is 142, potassium 3.7, BUN and creatinine of 43 and 2.6, and his blood sugar was noted to be 128. ASSESSMENT: This is a 69-year-old gentleman admitted to the rehab with a working diagnosis of a disuse myopathy. The patient has potential to make improvement. We instituted the following multidisciplinary therapies including but not limited to physical, occupational, respiratory, speech, nutritional services, prosthetics and orthotics. Given his complex medical condition and risks for more complications, rehabilitation services cannot be provided at a low level of care such a skilled nurse facility. PLAN: 1. Admit to [facility] for intensive inpatient therapy to include the following disciplines; A. Physical therapy to improve gait, all transfer skills and bed mobility to a modified independent level. B. Occupational therapy to a modified independent level. C. Case management to assist with discharge planning and placement options. D. Nutrition to assist with nutritional needs. E. Rehabilitation nursing to assist in monitoring the patient's underlying medical conditions and to assist with any type of bowel or bladder management. 2. The patient's current medication and medical care will be continued. 3. The patient will be placed on standard fall precautions. HISTORY AND PHYSICAL [id number] SAMIRA GARCIA 4. The patient's estimated length of stay is approximately 7-10 days. 5. The patient's creatinine is back down to his normal levels. We will not consult nephrology unless needed and I am going to see again in the a.m. TRANSINT:[id number] Voice Confirmation ID: [id number] DOCUMENT ID: [id number] JOSÉ notes whether there has been none or any medical/functional change since admission: - No change since prescreen. JOSÉ attests patient continues to be appropriate for IRF: - Continues to be appropriate. MERVAT KHOURY MD at 1321 CC: [id number] DICTATION DATE: 09/11/1936 EXTENSION COURSE COUNSELOR: 09/11/19 0951 ADM IN [place] [id number] [place] [id number]
--- NOTE | 2019-09-15 13:23 | NUR ---
OCCUPATIONAL THERAPIST HELPING PATIENT WITH A SHOWER
--- NOTE | 2019-09-15 14:50 | NUR ---
Nutrition Follow-up: Chart reviewed. Noted pt now in isolation, tested positive for Flu A over the weekend. Feeling weak and tired per MD notes. Diet: Diabetic PO intake: ~58% average x last 9 meals recorded, has decreased over the weekend presumably d/t +Flu dx. Last BM: 09/14/19. WT: 207# (09/11/19) Meds noted: remeron, SSI. Labs noted: K 3.1, BUN 47, Cr 2.9, GFR 23, Glu 115 Recommend continue current diet. Will add Glucerna with meals for now while patient is with decreased PO intake. RD following.
[2019-09-15 17:58] VITALS: BP 125/62
--- NOTE | 2019-09-15 19:25 | NUR ---
PATIENT RECEIVED SITTING UP IN WHEELCHAIR. INTRODUCED MYSELF & WROTE MY NAME ON THE BOARD. PATIENT CONTINUES ON DROPLET ISOLATION. PATIENT VITAL SIGNS & ASSESSMENT DONE. NO C/O PAIN OR DISTRESS. CALL LIGHT WITHIN REACH. WILL CONTINUE TO MONITOR.
[2019-09-15 19:54] VITALS: BP 115/56
[2019-09-16 00:13] VITALS: BP 158/78
--- NOTE | 2019-09-16 02:49 | NUR ---
PATIENT EYES CLOSED. RESPIRATIONS 18 & EVEN. BED LOW. ALARM ON. CALL LIGHT WITHIN REACH. WILL CONTINUE TO MONITOR.
--- NOTE | 2019-09-16 04:27 | NUR ---
I have reviewed this patient and I concur with the Shift Assessment completed by the Licensed Practical Nurse today this shift.
[2019-09-16 06:19] VITALS: BP 170/74
[2019-09-16 06:51] LABS: ANION GAP 13.8 mmol/L (8-16); CALCIUM 9.2 mg/dL (8.5-10.1); CARBON DIOXIDE 27.3 mmol/L (21.0-32.0); CREATININE - SERUM 2.9 mg/dL (0.6-1.3); POTASSIUM - SERUM 3.1 mmol/L (3.5-5.1)
--- NOTE | 2019-09-16 07:41 | NUR ---
PT RESTING IN BED WITH EYES OPEN CALL LIGHT IN REACH WILL MONITER
[2019-09-16 12:28] VITALS: BP 145/64
[2019-09-16 18:00] VITALS: BP 146/78
--- NOTE | 2019-09-16 19:30 | NUR ---
AWAKE AND ALERT. MILD CONFUSION AT TIMES. RESPIRATIONS UNLABORED. IN CONTACT ISOLATION RELATED TO FLU. NO ACUTE DISTRESS NOTED. CALL LIGHT IN REACH.
[2019-09-16 21:15] VITALS: BP 146/78
[2019-09-17 00:15] VITALS: BP 173/81
[2019-09-17 00:16] VITALS: BP 173/81
--- NOTE | 2019-09-17 00:48 | NUR ---
SLEEPING WITH RESPIRATIONS UNLABORED. NO DISTRESS NOTED. CALL LIGHT IN REACH.
--- NOTE | 2019-09-17 02:31 | NUR ---
CONTIUES RESTING IN BED WITH RESPIRATIONS UNLABORED. REMAINS IN DROPLET ISOLATION. CALL LIGHT IN REACH.
--- NOTE | 2019-09-17 04:57 | NUR ---
QUIET HOURS. RESTING IN BED WITH RESPIRAITONS UNLABORED. COUGHS MILDY AT INTERVALS. HAS BEEN UP TO BATHROOM AND BACK TO BED. REMAINS IN DROPLET ISOLATION.
[2019-09-17 06:06] VITALS: BP 196/87
--- NOTE | 2019-09-17 06:06 | NUR ---
BLOOD PRESSURE 196/87 CLONIDINE 0.2MG GIVEN PO. WILL MONITOR.
[2019-09-17 07:23] LABS: BASOPHILS 1.1 % (0-2); EOSINOPHILS 2.4 % (0-7); HEMATOCRIT 31.2 % (42.0-54.0); LYMPHOCYTES 29.1 % (15-50); MCH 29.9 pg (26.0-34.0); MCHC 32.1 g/dL (31.0-37.0); MCV 93.4 fL (80.0-100.0); MEAN PLATELET VOLUME 8.8 fL (7.4-10.4); MONOCYTES 15.1 % (2-11); NEUTROPHILS 52.3 % (40-80); PLATELET COUNT 225 10x3/uL (130-400); RBC 3.34 10x6/uL (4.20-6.10); RDW 13.8 % (11.5-14.5)
[2019-09-17 07:28] LABS: WBC 3.7 10x3/uL (4.8-10.8)
[2019-09-17 07:33] LABS: ANION GAP 13.6 mmol/L (8-16); CALCIUM 9.4 mg/dL (8.5-10.1); CARBON DIOXIDE 27.7 mmol/L (21.0-32.0); CREATININE - SERUM 2.4 mg/dL (0.6-1.3); POTASSIUM - SERUM 3.3 mmol/L (3.5-5.1)
[2019-09-17 12:32] VITALS: BP 137/68
--- NOTE | 2019-09-17 13:32 | NUR ---
PT RESTING IN BED WITH EYES OPEN CALL LIGHT IN [facility] WILL MONITER
--- NOTE | 2019-09-17 13:43 | NUR ---
CARE TEAM MEETING: PATIENT IS PROGRESSING IN THERAPY AND HIS TENATIVE DISCHARGE DATE IS 09/23/2019. WILL CONTINUE TO FOLLOW WITH PATIENT.
--- NOTE | 2019-09-17 13:59 | NUR ---
Nutrition Follow-up: Diet: Renal ADA (changed today) PO intake: 100% x last 3 meals Last BM: 09/14/19. WT: 207# (09/11/19)-- no new wt Meds noted: K-dur, bumex, remeron, SSI Labs noted: K 3.3, BUN 45, Cr 4.5, BUN 29, POC Glu 113, PO4 3.5 (09/11/19) Noted diet was changed from Diabetic to Renal ADA. The only difference between these diets is decreased K and PO4 in Renal diet. Patient's PO4 was WNL last time it was checked and K is low and being replaced. Recommend changing diet back to diabetic. RD following.
--- NOTE | 2019-09-17 14:00 | NUR ---
I have reviewed this patient and I concur with the Shift Assessment completed by the Licensed Practical Nurse today this shift.
--- NOTE | 2019-09-17 18:46 | NUR ---
PT RESTING IN BED WITH EYES OPEN CALL LIGHT IN REACH NO PROBLEMS WILL MONITER
--- NOTE | 2019-09-17 18:58 | NUR ---
BEDSIDE REPORT COMPLETE. PT SITTING UP IN W/C VISITING WITH SISTER. DENIES ANY NEEDS OR PAIN. INTRODUCED SELF. NO SIGNS OF ACUTE DISTRESS NOTED. CL IN REACH. FALL PRECAUTIONS IN PLACE. WILL CONTINUE TO MONITOR
[2019-09-17 20:54] VITALS: BP 142/72
[2019-09-18 00:24] VITALS: BP 208/87
[2019-09-18 06:56] VITALS: BP 162/69
--- NOTE | 2019-09-18 07:45 | NUR ---
PT EATING BREAKFAST, DENIES NEEDS. WCTM.
--- NOTE | 2019-09-18 07:49 | NUR ---
0000 REC'D ASSISTED TO BATHRM. ANASTASIIA ALARM IN PLAN ELA MINIMAL ASSIST. WILL CONTINUE TO MONITOR FOR ANY CHGES AND FOLLOW CURRENT PLAN OF CARE
[2019-09-18 12:03] VITALS: BP 154/73
[2019-09-18 23:02] VITALS: BP 167/71
--- NOTE | 2019-09-19 00:25 | NUR ---
RECEIVED PATIENT WALKING FROM HIS BATHROOM. RELATES HE IS SUPPOSE TO GO HOME TOMORROW THAT HE HAS BEEN HERE ABOUT A MONTH. SEE NURSING ASSESSMENT. PLEASANT AND INTERACTIVE WITH STAFF. REMAINS ON DROPLET PRECAUTIONS. RELATES A PRODUCTIVE COUGH HOWEVER THE SPUTUM IS NOW CLEAR. MEDS ADMINISTERED PER ORDERS WITHOUT DIFFICULTY. PT REQUESTED A XANAX. PRN ADMINISTERED WITHOUT DIFFICULTY. CONTINUE POC AND PROVIDE SAFE ENVIRONMENT.
[2019-09-19 00:49] VITALS: BP 196/93
[2019-09-19 06:36] VITALS: BP 201/89
[2019-09-19 08:00] VITALS: BP 161/80
[2019-09-19 08:24] LABS: BASOPHILS 1.1 % (0-2); EOSINOPHILS 2.2 % (0-7); HEMATOCRIT 31.1 % (42.0-54.0); HEMOGLOBIN 10.1 g/dL (13.5-17.5); IMMATURE GRANULOCYTES 1.1 % (0-5); LYMPHOCYTES 33.4 % (15-50); MCH 29.9 pg (26.0-34.0); MCHC 32.5 g/dL (31.0-37.0); MEAN PLATELET VOLUME 8.9 fL (7.4-10.4); MONOCYTES 15.2 % (2-11); PLATELET COUNT 259 10x3/uL (130-400); RBC 3.38 10x6/uL (4.20-6.10); RDW 13.4 % (11.5-14.5); WBC 3.6 10x3/uL (4.8-10.8)
[2019-09-19 08:56] LABS: ANION GAP 12.2 mmol/L (8-16); CALCIUM 9.6 mg/dL (8.5-10.1); CARBON DIOXIDE 29.7 mmol/L (21.0-32.0); CREATININE - SERUM 2.3 mg/dL (0.6-1.3); POTASSIUM - SERUM 3.9 mmol/L (3.5-5.1); T4 THYROXIN - FREE 1.19 ng/dL (0.76-1.46); THYROID STIMULATING HORMONE 2.03 uIU/mL (0.36-3.74)
--- NOTE | 2019-09-19 09:35 | NUR ---
PT AM MEDS ADMINSITERED. PT DENIES NEEDS. WCTM.
--- NOTE | 2019-09-19 10:45 | NUR ---
MARIE MUÑIZ CALLED AND RELEASED PT FROM ISOLATION PRECAUTIONS. RELAYED INFORMATION TO PT AND FAMILY.
[2019-09-19 12:29] VITALS: BP 169/85
--- NOTE | 2019-09-19 17:35 | NUR ---
PT EATING DINNER, RENAL DOCTOR VISITED WITH PT ABOUT DISCHARGE TOMORROW. WCTM.
[2019-09-19 18:43] VITALS: BP 148/73
--- NOTE | 2019-09-19 20:05 | NUR ---
AWAKE AND ALERT. SITTING IN WHEELCHAIR IN ROOM TALKING WITH FAMILY. RESPIRATION UNLABORED. NO ACUTE DISTRESS NOTED. CALL LIGHT IN REACH.
--- NOTE | 2019-09-19 23:31 | NUR ---
BLOOD PRESSURE 190/81 ON SECOND CHECK AFTER READING OF 198/89. MEDICATED WITH PRN CLONIDINE 0.2MG PO. WILL MONITOR FOR EFFECTIVENESS.
[2019-09-19 23:40] VITALS: BP 190/81
--- NOTE | 2019-09-20 00:41 | NUR ---
RESTING IN BED WITH RESPIRAITONS UNLABORED. BLOOD PRESSURE NOW 183/84. NO C/O PAIN OR DISCOMFORTS. WILL RECHECK IN ONE HOUR. NO DISTRESS NOTED.
[2019-09-20 00:46] VITALS: BP 183/84
[2019-09-20 01:45] VITALS: BP 170/80
--- NOTE | 2019-09-20 02:16 | NUR ---
BP AT 0145 WAS 170/80. SITTING IN WHEELCHAIR ALERT AND ORIENTED. NO DISTRESS NOTED.
--- NOTE | 2019-09-20 03:29 | NUR ---
SLEEPING WITH RESPIRAITONS UNLABORED. NO DISTRESS NOTED.
[2019-09-20 06:09] VITALS: BP 192/85
[2019-09-20] MEDS ORDERED: CARDURA4 MG PO (07:07)
[2019-09-20] MEDS ORDERED: NORMODYNE / TR100 MG PO (07:09)
[2019-09-20] MEDS ORDERED: PROCARDIA XL PO (07:12)
[2019-09-20] MEDS ORDERED: ALDACTONE25 MG PO (07:13)
[2019-09-20] MEDS ORDERED: CATAPRES TTS-3 TRANSDERM (07:16)
[2019-09-20] MEDS ORDERED: CATAPRES0.2 MG PO (07:17)
[2019-09-20] MEDS ORDERED: Depakote DR PO (07:19)
[2019-09-20] MEDS ORDERED: BUMEX2 MG PO (07:22)
[2019-09-20] MEDS ORDERED: SYNTHROID88 MCG PO (07:24)
[2019-09-20 07:38] LABS: ANION GAP 10.8 mmol/L (8-16); CALCIUM 9.4 mg/dL (8.5-10.1); CARBON DIOXIDE 29.4 mmol/L (21.0-32.0); CREATININE - SERUM 2.4 mg/dL (0.6-1.3); POTASSIUM - SERUM 4.2 mmol/L (3.5-5.1)
[2019-09-20] MEDS ORDERED: XANAX1 MG PO (09:22)
--- NOTE | 2019-09-20 09:46 | NUR ---
PT AM MEDS ADMINISTERED. PT FAMILY AT BEDISED AWAITING DISCHARGE. WCTM.
--- NOTE | 2019-09-20 13:47 | NUR ---
PT DISCHARGE INSTRUCTIONS COVERED IN GREAT DETAIL WITH PT AND PT SISTER, ALEKSANDER. PT MEDICATIONS CALLED IN TO [facility] ON [facility]. PT ESCORTED OUT VIA WHEELCHAIR BY THIS NURSE. PT DISCHARGING HOME WITH SISTER AT THIS TIME.
--- NOTE | 2019-09-22 12:39 | NUR ---
LATE ENTRY FOR DATE 09/20/2019: PATIENT DISCHARGED HOME WITH FAMILY. PATIENT AND FAMILY CHOSE [facility] AND DECLINED COMPARE DATA, PATIENT CHOICE FORM SIGNED, FOR HOME HEALTH, COPY FILED IN CHART AND ONE GIVEN TO PATIENT. [facility] FORM SIGNED, COPY FILED INCHART AND ONE FILED IN CHART. DR. AVERY 09/23/2019 @ 12:00, DR. LANZA 10/03/2019 @ 11:40. DISCHARGE INSTRUCTIONS FAXED TO HOME HEALTH , PCP AND REVIEWED WITH PATIENT.
== END 2019-09-20 13:49 | disposition home health service (06) | DRG 91 ==
LOC: D.REHAB 15:30
PROVIDERS: Internal Medicine; ADMIT Emergency Medicine; ATTEND Emergency Medicine
DX: G72.89 Other specified myopathies (principal); J18.9 Pneumonia, unspecified organism; N17.0 Acute kidney failure with tubular necrosis; E87.1 Hypo-osmolality and hyponatremia; N18.4 Chronic kidney disease, stage 4 (severe); I12.9 Hypertensive chronic kidney disease with stage 1 through stage 4 chronic kidney disease, or unspecified chronic kidney disease; E11.22 Type 2 diabetes mellitus with diabetic chronic kidney disease; R53.83 Other fatigue; S16.1XXD Strain of muscle, fascia and tendon at neck level, subsequent encounter; T14.8XXD Other injury of unspecified body region, subsequent encounter; W19.XXXD Unspecified fall, subsequent encounter; F31.9 Bipolar disorder, unspecified; F41.8 Other specified anxiety disorders; G89.29 Other chronic pain; G25.0 Essential tremor; E03.9 Hypothyroidism, unspecified; E11.65 Type 2 diabetes mellitus with hyperglycemia; Y95 Nosocomial condition; D63.1 Anemia in chronic kidney disease; J11.1 Influenza due to unidentified influenza virus with other respiratory manifestations; R13.11 Dysphagia, oral phase; R53.1 Weakness; E86.0 Dehydration; K21.9 Gastro-esophageal reflux disease without esophagitis

== ENCOUNTER 2020-04-27 03:45 | Observation (INO) | payer MEDICARE ==
[2020-04-27] VITALS (11 sets, daily range): BP systolic 142–189; BP diastolic 70–121; BMI 30.1
[~2020-04-27] VITALS: Ht 170.2 cm; Wt 87.1 kg
[~2020-04-27 03:45] MED LIST changes: +BUMEX2 MG PO; +CATAPRES TTS-3 TRANSDERM; +CATAPRES0.2 MG PO; +Depakote DR PO; +NORMODYNE / TR100 MG PO; +PROCARDIA XL PO; +SYNTHROID88 MCG PO; +XANAX1 MG PO
[2020-04-27 05:04] LABS: CALC OSMOLALITY 267 mosm/kg (275-300); CALCIUM 8.9 mg/dL (8.5-10.1); CHLORIDE - SERUM 96 mmol/L (98-107); CREATININE - SERUM 2.2 mg/dL (0.6-1.3); GLUCOSE 129 mg/dL (74-106); POTASSIUM - SERUM 4.4 mmol/L (3.5-5.1); SODIUM 128 mmol/L (136-145); UREA NITROGEN 39 mg/dL (7-18); eGFR NON AFRICAN AMERICAN 32 mL/min (90-120)
[2020-04-27 05:13] LABS: ALBUMIN 3.6 g/dL (3.4-5.0); ALKALINE PHOSPHATASE 72 U/L (30-120); ALT (SGPT) 16 U/L (10-68); BILIRUBIN - TOTAL 0.13 mg/dL (0.2-1.3); LIPASE 102 U/L (73-393); MAGNESIUM - SERUM 1.6 mg/dL (1.8-2.4); PRO BNP 182 pg/mL (0-125); PROTEIN - SERUM 6.8 g/dL (6.4-8.2); THYROID STIMULATING HORMONE 2.42 uIU/mL (0.36-3.74)
[2020-04-27 05:17] LABS: BASOPHILS 0.3 % (0-2); EOSINOPHILS 1.7 % (0-7); HEMATOCRIT 26.5 % (42.0-54.0); HEMOGLOBIN 9.1 g/dL (13.5-17.5); IMMATURE GRANULOCYTES 1.9 % (0-5); LYMPHOCYTES 27.5 % (15-50); MCH 31.4 pg (26.0-34.0); MCHC 34.3 g/dL (31.0-37.0); MCV 91.4 fL (80.0-100.0); MEAN PLATELET VOLUME 7.8 fL (7.4-10.4); MONOCYTES 9.8 % (2-11); NEUTROPHILS 58.8 % (40-80); RDW 14.1 % (11.5-14.5)
[2020-04-27 05:18] LABS: C-REACTIVE PROTEIN < 0.2 mg/dL (0.0-0.9); TROPONIN-I < 0.017 ng/mL (0.000-0.060)
[2020-04-27 05:28] LABS: PLATELET COUNT 136 10x3/uL (130-400)
[2020-04-27 05:55] LABS: INR 0.97 (0.85-1.17); PROTIME 12.8 SECONDS (11.6-15.0)
--- NOTE | 2020-04-27 13:43 | NUR ---
RECEIVED RETURN CALL FROM DR. ALEXANDER'S OFFICE, CONFIRMED CONSULT.
--- NOTE | 2020-04-27 17:25 | NUR ---
RETURNS FROM MRI.
[2020-04-27] MEDS ORDERED: BENICAR20 MG PO (17:33)
--- NOTE | 2020-04-27 17:54 | NUR ---
RECEIVED PT FROM ER. PT IS AAO AND UP AD JEANNE. RR EVEN AND UNLABORED ON RA. VSS AND WNL. TELEMETRY APPLIED. PIV SALINE LOCKED TO R.FOR. QUICKSTART, HISTORY, MED REQ, AND ASSESSMENT COMPLETED. NO S/S OF DISTRESS NOTED. PT DENIES ANY NEEDS AT THIS TIME. FALL PRECAUTIONS IN PLACE. WILL CTM.
[2020-04-28] VITALS: BP 124/70
[2020-04-28 04:00] VITALS: BP 134/74
[2020-04-28 06:10] LABS: BASOPHILS 0.3 % (0-2); EOSINOPHILS 1.4 % (0-7); HEMATOCRIT 28.6 % (42.0-54.0); HEMOGLOBIN 9.6 g/dL (13.5-17.5); IMMATURE GRANULOCYTES 1.1 % (0-5); LYMPHOCYTES 20.9 % (15-50); MCH 31.6 pg (26.0-34.0); MCHC 33.6 g/dL (31.0-37.0); MEAN PLATELET VOLUME 7.8 fL (7.4-10.4); MONOCYTES 11.5 % (2-11); NEUTROPHILS 64.8 % (40-80); PLATELET COUNT 145 10x3/uL (130-400); RBC 3.04 10x6/uL (4.20-6.10); RDW 14.4 % (11.5-14.5); WBC 7.1 10x3/uL (4.8-10.8)
[2020-04-28 06:14] LABS: MCV 94.1 fL (80.0-100.0)
[2020-04-28 06:30] LABS: % SATURATION 16 % (15-55); IRON 43 ug/dl (35-150); TOTAL IRON BIND CAPACITY 254 ug/dl (260-445); UNSAT IRON BIND CAPACITY 211 ug/dl (150-375)
[2020-04-28 06:43] LABS: ALBUMIN 3.8 g/dL (3.4-5.0); ANION GAP 8.9 mmol/L (8-16); BILIRUBIN - TOTAL 0.27 mg/dL (0.2-1.3); CALCIUM 9.3 mg/dL (8.5-10.1); CARBON DIOXIDE 28.8 mmol/L (21.0-32.0); CREATININE - SERUM 2.4 mg/dL (0.6-1.3); PHOSPHOROUS 4.5 mg/dL (2.5-4.9); POTASSIUM - SERUM 4.7 mmol/L (3.5-5.1); PROTEIN - SERUM 7.1 g/dL (6.4-8.2)
[2020-04-28 10:36] VITALS: BP 154/73
[2020-04-28 12:00] VITALS: BP 167/85
[2020-04-28] MEDS ORDERED: GABAPENTIN100 MG PO ×2 (12:20→12:23)
[2020-04-28] MEDS ORDERED: METHOCARBAMOL500 MG PO (12:21)
[2020-04-28 13:36] VITALS: Ht 170.2 cm; Wt 87.1 kg
[2020-04-28 16:00] VITALS: BP 156/99
[2020-04-28 20:00] VITALS: BP 158/85
[2020-04-29 04:00] VITALS: BP 123/67
[2020-04-29 06:34] LABS: ALBUMIN 3.6 g/dL (3.4-5.0); ANION GAP 11.1 mmol/L (8-16); BILIRUBIN - TOTAL 0.13 mg/dL (0.2-1.3); CARBON DIOXIDE 26.1 mmol/L (21.0-32.0); CREATININE - SERUM 2.5 mg/dL (0.6-1.3); POTASSIUM - SERUM 4.2 mmol/L (3.5-5.1); PROTEIN - SERUM 6.8 g/dL (6.4-8.2)
[2020-04-29 06:37] LABS: BASOPHILS 0.2 % (0-2); EOSINOPHILS 0 % (0-7); HEMATOCRIT 26.3 % (42.0-54.0); HEMOGLOBIN 9.1 g/dL (13.5-17.5); IMMATURE GRANULOCYTES 1.7 % (0-5); LYMPHOCYTES 18.4 % (15-50); MCH 32.3 pg (26.0-34.0); MCHC 34.6 g/dL (31.0-37.0); MCV 93.3 fL (80.0-100.0); MONOCYTES 12.8 % (2-11); NEUTROPHILS 66.9 % (40-80); PLATELET COUNT 164 10x3/uL (130-400); RBC 2.82 10x6/uL (4.20-6.10); RDW 14.2 % (11.5-14.5); WBC 8.7 10x3/uL (4.8-10.8)
--- NOTE | 2020-04-29 07:10 | NUR ---
PT SITTING UP IN BED WITH HOB ELEVATED. ALERT AND ORIENTED. SISTER AT BEDSIDE. PT ON ROOM AIR. THEY STATE THEY HAVE NO FURTHER NEEDS AT THIS TIME. BED LOW. CL IN REACH. WILL CONTINUE TO OBSERVE.
--- NOTE | 2020-04-29 08:54 | NUR ---
SPOKE WITH CHEYENNE IN [facility]ICAL IMAGING AND SHE STATES SHE WILL GET MRI OF SPINE DISC READY FOR PT TO TAKE UPON DC. I VERBALIZED UNDERSTANDING.
[2020-04-29 09:32] VITALS: BP 109/71
--- NOTE | 2020-04-29 12:57 | NUR ---
SPOKE WITH DR. LANZA AND SHE STATES SHE WANTS PT TO BE DC'D WITH TRAMADOL 100MG PO QID. I STATED TO HER WE ARE UNABLE TO CALL IT IN. SHE STATES SHE WILL GET DR. AVERY TO WRITE A SCRIPT. I VERBALIZED UNDERSTANDING.
[2020-04-29] MEDS ORDERED: ULTRAM50 MG PO ×2 (13:04→14:29)
[2020-04-29] MEDS ORDERED: LIPITOR20 MG PO (14:51)
[2020-04-29] MEDS ORDERED: XANAX1 MG PO (14:51)
--- NOTE | 2020-04-29 15:27 | NUR ---
REVIEWED MEDICATIONS THOUROGHLY WITH PT AND FAMILY MEMBER. VERBALIZED AGREEMENT AND NO FURTHER QUESTIONS AT THIS TIME. IV D/C WITH CATHETER TIP INTACT. LEFT VIA WHEELCHAIR WITH ALL BELONGINGS.
== END 2020-04-29 15:29 | disposition home or self-care (01) ==
LOC: D.ER 03:45 → D.EDHOLD 10:20 → OBSVTIME 10:20 → D.M2 10:20 → D.EDHOLD 10:20 → D.M2 14:34
PROVIDERS: Family Medicine; Internal Medicine; ADMIT Family Medicine; ATTEND Family Medicine
DX: R07.89 Other chest pain (principal); M54.6 Pain in thoracic spine; M54.12 Radiculopathy, cervical region; I20.9 Angina pectoris, unspecified; E87.1 Hypo-osmolality and hyponatremia; E03.9 Hypothyroidism, unspecified; F31.9 Bipolar disorder, unspecified; I12.9 Hypertensive chronic kidney disease with stage 1 through stage 4 chronic kidney disease, or unspecified chronic kidney disease; E11.22 Type 2 diabetes mellitus with diabetic chronic kidney disease; N18.3 Chronic kidney disease, stage 3 (moderate); M50.33 Other cervical disc degeneration, cervicothoracic region; K21.9 Gastro-esophageal reflux disease without esophagitis; N40.0 Benign prostatic hyperplasia without lower urinary tract symptoms; R25.1 Tremor, unspecified; F41.8 Other specified anxiety disorders; E11.65 Type 2 diabetes mellitus with hyperglycemia

== ENCOUNTER 2020-05-07 09:13 | Inpatient (IN) | payer MEDICARE ==
[~2020-05-07] VITALS: Ht 170.2 cm; Wt 84.7 kg
[~2020-05-07 09:13] MED LIST changes: +BENICAR20 MG PO; +GABAPENTIN100 MG PO; +LIPITOR20 MG PO; +METHOCARBAMOL500 MG PO; +ULTRAM50 MG PO
[2020-05-07 09:58] LABS: BASOPHILS 0.3 % (0-2); EOSINOPHILS 2.2 % (0-7); HEMATOCRIT 28.1 % (42.0-54.0); HEMOGLOBIN 9.8 g/dL (13.5-17.5); IMMATURE GRANULOCYTES 3.6 % (0-5); LYMPHOCYTES 18.5 % (15-50); MCH 31.8 pg (26.0-34.0); MCHC 34.9 g/dL (31.0-37.0); MCV 91.2 fL (80.0-100.0); MEAN PLATELET VOLUME 7.8 fL (7.4-10.4); NEUTROPHILS 61.4 % (40-80); PLATELET COUNT 178 10x3/uL (130-400); RBC 3.08 10x6/uL (4.20-6.10); RDW 14.2 % (11.5-14.5); WBC 5.9 10x3/uL (4.8-10.8)
[2020-05-07 10:10] LABS: APTT 26.6 SECONDS (22.8-39.4); INR 0.96 (0.85-1.17); PROTIME 12.8 SECONDS (11.6-15.0)
[2020-05-07 10:16] LABS: CALC OSMOLALITY 268 mosm/kg (275-300); CALCIUM 9.9 mg/dL (8.5-10.1); CARBON DIOXIDE 27.6 mmol/L (21.0-32.0); CHLORIDE - SERUM 92 mmol/L (98-107); CREATININE - SERUM 2.6 mg/dL (0.6-1.3); GLUCOSE 162 mg/dL (74-106); POTASSIUM - SERUM 5.2 mmol/L (3.5-5.1); SODIUM 126 mmol/L (136-145); UREA NITROGEN 45 mg/dL (7-18); eGFR NON AFRICAN AMERICAN 26 mL/min (90-120)
[2020-05-07 10:30] LABS: ALBUMIN 3.8 g/dL (3.4-5.0); ALKALINE PHOSPHATASE 72 U/L (30-120); ALT (SGPT) 22 U/L (10-68); BILIRUBIN - TOTAL 0.24 mg/dL (0.2-1.3); CKMB 3.8 U/L (0.0-3.6); CREATINE KINASE 181 UL (21-232); MAGNESIUM - SERUM 2.2 mg/dL (1.8-2.4); PROTEIN - SERUM 7.8 g/dL (6.4-8.2); THYROID STIMULATING HORMONE 1.15 uIU/mL (0.36-3.74); TROPONIN-I < 0.017 ng/mL (0.000-0.060)
[2020-05-07 11:20] LABS: BILIRUBIN NEGATIVE (NEGATIVE); KETONE NEGATIVE (NEGATIVE); NITRITE NEGATIVE (NEGATIVE); UROBILINOGEN NORMAL mg/dL (< 2)
[2020-05-07 11:38] VITALS: BP 122/71
[2020-05-07] MEDS ORDERED: BACLOFEN10 MG PO (15:03)
[2020-05-07] MEDS ORDERED: CARDURA2 MG PO (15:04)
[2020-05-07 15:19] VITALS: BP 164/82; BMI 30.3
--- NOTE | 2020-05-07 15:52 | NUR ---
ADMISSION COMPLETE SISTER REMAINS AT BEDSIDE
--- NOTE | 2020-05-07 19:30 | NUR ---
PT IN BED, AAO X 3, RESP EVEN AND UNLABORED, NO DISTRESS NOTED, CL IN REACH, SR UP X 2. SISTER AT BEDSIDE.
[2020-05-07 20:15] VITALS: BP 138/91
--- NOTE | 2020-05-08 04:08 | NUR ---
I have reviewed this patient and I concur with the Shift Assessment completed by the Licensed Practical Nurse today this shift.
[2020-05-08 04:30] VITALS: BP 157/91
[2020-05-08 05:05] LABS: BASOPHILS 0.6 % (0-2); EOSINOPHILS 1.7 % (0-7); HEMATOCRIT 26.9 % (42.0-54.0); HEMOGLOBIN 9.1 g/dL (13.5-17.5); IMMATURE GRANULOCYTES 1.4 % (0-5); LYMPHOCYTES 23.8 % (15-50); MCH 31.5 pg (26.0-34.0); MCHC 33.8 g/dL (31.0-37.0); MCV 93.1 fL (80.0-100.0); MEAN PLATELET VOLUME 7.4 fL (7.4-10.4); MONOCYTES 12.7 % (2-11); NEUTROPHILS 59.8 % (40-80); PLATELET COUNT 155 10x3/uL (130-400); RBC 2.89 10x6/uL (4.20-6.10); RDW 14.1 % (11.5-14.5); WBC 6.6 10x3/uL (4.8-10.8)
[2020-05-08 05:27] LABS: ALBUMIN 3.4 g/dL (3.4-5.0); ANION GAP 13.2 mmol/L (8-16); BILIRUBIN - TOTAL 0.2 mg/dL (0.2-1.3); CALCIUM 9.5 mg/dL (8.5-10.1); CARBON DIOXIDE 27.7 mmol/L (21.0-32.0); CREATININE - SERUM 2.4 mg/dL (0.6-1.3); MAGNESIUM - SERUM 2.2 mg/dL (1.8-2.4); POTASSIUM - SERUM 4.9 mmol/L (3.5-5.1); PROTEIN - SERUM 6.9 g/dL (6.4-8.2)
--- NOTE | 2020-05-08 07:37 | NUR ---
PT RECEIVED AWAKE AND ALERT. GOING TO MRI AT PRESENT. TELEMETRY REMOVED.
[2020-05-08 10:02] VITALS: BP 150/81
[2020-05-08 10:28] VITALS: Ht 170.2 cm; Wt 84.7 kg
[2020-05-08 14:20] VITALS: BP 147/82
[2020-05-08 20:00] VITALS: BP 174/78
--- NOTE | 2020-05-08 20:13 | NUR ---
INITIAL ROUNDS COMPLETED AT 1915 HRS. PT DENIED ANY DISCOMFORT. ASSESSMENT COMPLETED AT [address] PER CM HR 112. ALERT AND ORIENTED TO PERSON, PLACE AND TIME. MAURICIO. LUNGS DIMINIHSED IN BASES BILAT. BRUISES NOTED TO BILAT ARM. DENIES ANY DISCOMFORT. SR UP X1, CALL LIGHT WITHIN REACH.
--- NOTE | 2020-05-08 21:52 | NUR ---
FSBS 189. 2 UNITS I NSULIN GIVEN SUB-Q TO UPPER R ARM PRE S/S. PM MEDS GIVEN. SISTER AT BEDSIDE.
--- NOTE | 2020-05-08 23:43 | NUR ---
PT RESTING WITH EYES CLOSED. RESP EVEN AND REGULAR. SR UP X1,CALL LIGHT WITHIN REACH AND SISTER AT BEDSIDE.
[2020-05-09 00:02] VITALS: BP 158/99
--- NOTE | 2020-05-09 00:02 | NUR ---
ULTRAM 100 MG PO GIVEN FOR C/O CHRONIC SHOULDER PAIN 06/05. SISTER AT BEDSIDE. CALL LIGHT WITHIN REACH.
--- NOTE | 2020-05-09 02:10 | NUR ---
PT RESTING WITH EYES CLOSED. RESP EVEN AND REGULAR. CALL LIGHT WITHIN REACH AND SISTER AT BEDSIDE.
[2020-05-09 04:20] VITALS: BP 144/78
--- NOTE | 2020-05-09 04:38 | NUR ---
TYLENOL 650MG PO GIVEN FOR C/O BENTLEY. PT HAS C/O R EYE SORENESS. EYE SLIGHTLY RED AND A LITTLE SWOLLEN. DENIES ANY CHANGE IN VISION. SISTER AT BEDSIDE.
[2020-05-09 06:17] LABS: BASOPHILS 0.3 % (0-2); EOSINOPHILS 1.7 % (0-7); HEMATOCRIT 27.3 % (42.0-54.0); IMMATURE GRANULOCYTES 1.5 % (0-5); LYMPHOCYTES 24.2 % (15-50); MCV 94.1 fL (80.0-100.0); MEAN PLATELET VOLUME 7.8 fL (7.4-10.4); MONOCYTES 12.2 % (2-11); NEUTROPHILS 60.1 % (40-80); PLATELET COUNT 186 10x3/uL (130-400); RDW 14.2 % (11.5-14.5); WBC 6.6 10x3/uL (4.8-10.8)
--- NOTE | 2020-05-09 06:26 | NUR ---
VSS THROUGHOUT NIGHT. SR/ST PER CM. PT STATED ULTRAM CONTROLLED HIS CHRONIC PAIN. NEEDS MET; WILL CONTINUE TO MONITOR.
[2020-05-09 06:35] LABS: ALBUMIN 3.4 g/dL (3.4-5.0); ANION GAP 11.2 mmol/L (8-16); BILIRUBIN - TOTAL 0.2 mg/dL (0.2-1.3); CALCIUM 9.4 mg/dL (8.5-10.1); CARBON DIOXIDE 27.3 mmol/L (21.0-32.0); CREATININE - SERUM 2.6 mg/dL (0.6-1.3); MAGNESIUM - SERUM 2.2 mg/dL (1.8-2.4); POTASSIUM - SERUM 4.5 mmol/L (3.5-5.1); PROTEIN - SERUM 6.7 g/dL (6.4-8.2)
--- NOTE | 2020-05-09 07:00 | NUR ---
RECEIVED REPORT. ASSUMED CARE OF PATIENT. CALL LIGHT WITHIN REACH. WHITE BOARD UPDATED, BEDSIDE SHIFT REPORT COMPLETE. PATIENT WITH HIS SISTER AT BEDSIDE. PATIENT NOTED TO HAVE CHRONIC SHOULDER PAIN. DENIES NEEDS AT THIS TIME. NO DISTRESS.
[2020-05-09 08:46] VITALS: BP 132/80
--- NOTE | 2020-05-09 11:42 | NUR ---
FSBS 153. 2 UNITS HUMALOG ADMINISTERED PER SLIDING SCALE.
--- NOTE | 2020-05-09 12:44 | MORECARE ---
CASE MANAGEMENT DISCHARGE SUMMARY PATIENT: SAMIRA GARCIA UNIT: [id number] ADM DATE: 05/07/20 AGE: 70 : 50 SEX: M ROOM/BED: D.2126 AUTHOR: BABAK VINSON PHYSICIAN: REFERRING PHYSICIAN: ANDREA GUNTER MD DATE OF SERVICE: 05/09/20 Discharge Plan Patient Name: SAMIRA GARCIA Facility: [facility]:[place] : 1950 Planned Disposition: Home with Home Health Anticipated Discharge Date: Discharge Date: Expected LOS: Initial Reviewer: [email or web address] Initial Review Date: 05/07/2020 Generated: 05/09/20 1:43 pm Patient Name: SAMIRA GARCIA Page [id number] at 1244 All edits/amendments must be made on the electronic document DICTATION DATE: 05/09/20 1243 CLINICAL OB: ASAEL 05/09/20 1243 RPT#: [id number] DC DATE: STATUS: ADM IN [facility] [address] [place] [address] END OF REPORT
--- NOTE | 2020-05-09 13:03 | MORECARE ---
CASE MANAGEMENT DISCHARGE SUMMARY PATIENT: SAMIRA GARCIA UNIT: [id number] ADM DATE: 05/07/20 AGE: 70 : 50 SEX: M ROOM/BED: D.2126 AUTHOR: BABAK VINSON PHYSICIAN: REFERRING PHYSICIAN: ANDREA GUNTER MD DATE OF SERVICE: 05/09/20 Discharge Plan Patient Name: SAMIRA GARCIA [facility] [facility] 1950 Planned Disposition: Home with Home Health Anticipated Discharge Date: Discharge Date: Expected LOS: Initial Reviewer: [email or web address] Initial Review Date: 05/07/2020 Generated: 05/09/20 2:03 pm DCPIA - Discharge Planning Initial Assessment Updated by [email or web address]: Freya Guo on 05/09/20 12:59 pm * Is the patient Alert and Oriented? Yes * How many steps to enter\exit or inside your home? 3/0 * PCP vanessa * Pharmacy [facility] * ADLs Independent * Equipment Cane Rolling Walker * List name and contact numbers for known caregivers / representatives who currently or will assist patient after discharge: Ayleen [phone] * Verbal permission to speak to the caregivers and representatives has been obtained from the patient. Yes * Community resources currently utilized None * Additional services required to return to the preadmission environment? Yes * Can the patient safely return to the preadmission environment? Yes * Has this patient been hospitalized within the prior 30 days at any hospital? Yes Last DP export: 05/09/20 11:44 a Patient Name: SAMIRA GARCIA Page 95255 at 1303 All edits/amendments must be made on the electronic document DICTATION DATE: 05/09/20 1303 THERMODYNAMICIST: ASAEL 05/09/20 1303 RPT#: [id number] DC DATE: STATUS: ADM IN [facility] [address] [place] [address] END OF REPORT
--- NOTE | 2020-05-09 13:27 | NUR ---
PATIENT LEFT UNIT VIA WHEELCHAIR AT THIS TIME WITH ALL PERSONAL BELONGINGS. PATIENT DISCHARGED TO HOME WITH HIS SISTER VIA PRIVATE VEHICLE. 1315 - 20 GAUGE REMOVED FROM LEFT WRIST. CATHETER TIP INTACT. NO BLEEDING FROM SITE. 2X2 GAUZE APPLIED AND SECURED WITH TAPE. TOLERATED IV REMOVAL WELL. 1310 - TELEMETRY REMOVED AND RETURNED TO NETTING INSPECTOR. DISCHARGE INSTRUCTIONS PROVIDED TO PATIENT AND HIS SISTER. PATIENT AND SISTER VERBALZIED UNDERSTANDING OF ALL INSTRUCTIONS PROVIDED. PTS SISTER CARES FOR PATIENT AT HOME AND HANDLES MEDICATIONS, APPTS ECT.
--- NOTE | 2020-05-09 13:29 | MORECARE ---
CASE MANAGEMENT DISCHARGE SUMMARY PATIENT: SAMIRA GARCIA UNIT: [id number] ADM DATE: 05/07/20 AGE: 70 : 50 SEX: M ROOM/BED: D.2126 AUTHOR: BABAK VINSON PHYSICIAN: REFERRING PHYSICIAN: ANDREA GUNTER MD DATE OF SERVICE: 05/09/20 Discharge Plan Patient Name: SAMIRA GARCIA [facility] [facility] 1950 Planned Disposition: Home with Home Health Anticipated Discharge Date: Discharge Date: Expected LOS: Initial Reviewer: [email or web address] Initial Review Date: 05/07/2020 Generated: 05/09/20 2:29 pm DCPIA - Discharge Planning Initial Assessment Updated by [email or web address]: Freya Guo on 05/09/20 12:59 pm * Is the patient Alert and Oriented? Yes * How many steps to enter\exit or inside your home? 3/0 * PCP vanessa * [facility] * ADLs Independent * Equipment Cane Rolling Walker * List name and contact numbers for known caregivers / representatives who currently or will assist patient after discharge: Ayleen [phone] * Verbal permission to speak to the caregivers and representatives has been obtained from the patient. Yes * Community resources currently utilized None * Additional services required to return to the preadmission environment? Yes * Can the patient safely return to the preadmission environment? Yes * Has this patient been hospitalized within the prior 30 days at any hospital? Yes External Providers [facility] Next Contact Date: Service Request Date: Service Type: Resolution: Reviewer: Comments: Last DP export: 05/09/20 12:03 p Patient Name: SAMIRA GARCIA Page [id number] at 1329 All edits/amendments must be made on the electronic document DICTATION DATE: 05/09/20 1329 ASSEMBLER FINGER BUFFS: ASAEL 05/09/20 1329 RPT#: [id number] DC DATE: STATUS: ADM IN [facility] [address] [place] [address] END OF REPORT
--- NOTE | 2020-05-09 13:44 | MORECARE ---
CASE MANAGEMENT DISCHARGE SUMMARY PATIENT: SAMIRA GARCIA UNIT: [id number] ADM DATE: 05/07/20 AGE: 70 : 50 SEX: M ROOM/BED: D.3294 AUTHOR: KARELDOC PHYSICIAN: REFERRING PHYSICIAN: ANDREA GUNTER MD DATE OF SERVICE: 05/09/20 Discharge Plan Patient Name: SAMIRA GARCIA Facility: [facility]:[place] : 1950 Planned Disposition: Home with Home Health Anticipated Discharge Date: Discharge Date: 05/09/2020 Expected LOS: Initial Reviewer: [email or web address] Initial Review Date: 05/07/2020 Generated: 05/09/20 2:43 pm Comments DCP- Discharge Planning Updated by [email or web address]: Freya Guo on 05/09/20 12:[address] Patient Name: SAMIRA GARCIA Admission Status: ER Accout number: [id number] Admission Date: 05-07-2020 : 1950 Admission Diagnosis: Attending: JODIE Current LOS: 2 Anticipated DC Date: Planned Disposition: Home with Home Health Primary Insurance: MEDICARE A & B Discharge Planning Comments: CM met with patient to complete initial dc planning assessment. CM educated patient on the CM role and verbal consent given by patient to complete assessment. CM verified patient's address, phone number, and emergency contact phone numbers. Patient lives at home alone, but his sister Ayleen lives nearby and is able to assist him as needed. At discharge patient plans to return home and feels this is a safe discharge. CM discussed availability of home health, rehab services, and medical equipment. Patient requests to have [facility] with physical therapy. CM called [facility] and spoke with Letty about the Referral. Letty states they will start services on Sunday . Transportation provider at discharge will be Ayleen who is at bedside . CM will continue to follow and will assist as needed with dc plans/needs. DC IMM delivered, explained, signed by the patient, and placed in chart. Signed form also left with the patient. Pie Bottomer: Freya Guo DCPIA - Discharge Planning Initial Assessment Updated by [email or web address]: Freya Guo on 05/09/20 12:59 pm * Is the patient Alert and Oriented? Yes * How many steps to enter\exit or inside your home? 3/0 * PCP mendez * Pharmacy [facility] * ADLs Independent * Equipment Cane Rolling Walker * List name and contact numbers for known caregivers / representatives who currently or will assist patient after discharge: Ayleen [phone] * Verbal permission to speak to the caregivers and representatives has been obtained from the patient. Yes * Community resources currently utilized None * Additional services required to return to the preadmission environment? Yes * Can the patient safely return to the preadmission environment? Yes * Has this patient been hospitalized within the prior 30 days at any hospital? 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 Name: Delivery Method: HAND - Hand Delivered Janett Days: Prior Verbal Notification: Recipient Understood Notice: Yes Recipient Signature: Yes Med Rec Note Co-signed by Attending: Coverage Notice Comment: [facility] Reviewer: [email or web address] Ryanne Guo Notice Issued Date-Time: 05/09/2020 11:45 Notice Type: IM Discharge Notice Notice Delivered To: Patient Relationship to Patient: Box Truck Owner Operator Name: Delivery Method: HAND - Hand Delivered Janett Days: Prior Verbal Notification: Recipient Understood Notice: Yes Recipient Signature: Yes Med Rec Note Co-signed by Attending: Coverage Notice Comment: DC IMM delivered, explained, signed by the patient, and placed in chart. Signed form also left with the patient. Last DP export: 05/09/20 12:29 p Patient Name: SAMIRA GARCIA Page [phone] at 1344 All edits/amendments must be made on the electronic document DICTATION DATE: 05/09/20 1344 QUALITY CONTROL CHECKER: ASAEL 05/09/20 1344 RPT#: [id number] DC DATE:05/09/20 STATUS: DIS IN [facility] [address] [place] [address] END OF REPORT
--- NOTE | 2020-05-10 10:33 | MORECARE ---
CASE MANAGEMENT DISCHARGE SUMMARY PATIENT: SAMIRA GARCIA UNIT: [id number] ADM DATE: 05/07/20 AGE: 70 : 50 SEX: M ROOM/BED: D.7780 AUTHOR: KARELDOC PHYSICIAN: REFERRING PHYSICIAN: ANDREA GUNTER MD DATE OF SERVICE: 05/10/20 Discharge Plan Patient Name: SAMIRA GARCIA Facility: [facility]:[place] : 1950 Planned Disposition: Home with Home Health Anticipated Discharge Date: Discharge Date: 05/09/2020 Expected LOS: Initial Reviewer: [email or web address] Initial Review Date: 05/07/2020 Generated: 05/10/20 11:33 am Comments DCP- Discharge Planning Updated by [email or web address]: Freya Guo on 05/09/20 12:[address] Patient Name: SAMIRA GARCIA Admission Status: ER Accout number: [id number] Admission Date: 05-07-2020 : 1950 Admission Diagnosis: Attending: JODIE Current LOS: 2 Anticipated DC Date: Planned Disposition: Home with Home Health Primary Insurance: MEDICARE A & B Discharge Planning Comments: CM met with patient to complete initial dc planning assessment. CM educated patient on the CM role and verbal consent given by patient to complete assessment. CM verified patient's address, phone number, and emergency contact phone numbers. Patient lives at home alone, but his sister Alyeen lives nearby and is able to assist him as needed. At discharge patient plans to return home and feels this is a safe discharge. CM discussed availability of home health, rehab services, and medical equipment. Patient requests to have [facility] with physical therapy. CM called [facility] and spoke with Letty about the Referral. Letty states they will start services on Sunday . Transportation provider at discharge will be Ayleen who is at bedside . CM will continue to follow and will assist as needed with dc plans/needs. DC IMM delivered, explained, signed by the patient, and placed in chart. Signed form also left with the patient. Issuer: Freya Guo DCPIA - Discharge Planning Initial Assessment Updated by [email or web address]: Freya Guo on 05/09/20 12:59 pm * Is the patient Alert and Oriented? Yes * How many steps to enter\exit or inside your home? 3/0 * PCP mendez * Pharmacy [facility] * ADLs Independent * Equipment Cane Rolling Walker * List name and contact numbers for known caregivers / representatives who currently or will assist patient after discharge: Ayleen [phone] * Verbal permission to speak to the caregivers and representatives has been obtained from the patient. Yes * Community resources currently utilized None * Additional services required to return to the preadmission environment? Yes * Can the patient safely return to the preadmission environment? Yes * Has this patient been hospitalized within the prior 30 days at any hospital? Yes Coverage Notice Reviewer: [id number] Ryanne Guo Notice Issued Date-Time: 05/09/2020 11:45 Notice Type: Patient Choice Letter Notice Delivered To: Patient Relationship to Patient: Commercial Litigation Paralegal Name: Delivery Method: HAND - Hand Delivered Janett Days: Prior Verbal Notification: Recipient Understood Notice: Yes Recipient Signature: Yes Med Rec Note Co-signed by Attending: Coverage Notice Comment: [facility] Reviewer: [email or web address] Ryanne Guo Notice Issued Date-Time: 05/09/2020 11:45 Notice Type: IM Discharge Notice Notice Delivered To: Patient Relationship to Patient: Commercial Litigation Paralegal Name: Delivery Method: HAND - Hand Delivered Janett Days: Prior Verbal Notification: Recipient Understood Notice: Yes Recipient Signature: Yes Med Rec Note Co-signed by Attending: Coverage Notice Comment: DC IMM delivered, explained, signed by the patient, and placed in chart. Signed form also left with the patient. Last DP export: 05/09/20 12:44 p Patient Name: SAMIRA GARCIA Page 78110 at 1033 All edits/amendments must be made on the electronic document DICTATION DATE: 05/10/20 1033 STOKER ERECTOR: ASAEL 05/10/20 1033 RPT#: [id number] DC DATE:05/09/20 STATUS: DIS IN [facility] [address] [place] [address] END OF REPORT
== END 2020-05-09 13:31 | disposition home health service (06) | DRG 645 ==
LOC: D.ER 09:13 → OBSVTIME 13:04 → D.EDHOLD 13:04 → D.M2 13:04
PROVIDERS: Family Medicine; ADMIT Family Medicine; ATTEND Family Medicine
DX: E22.2 Syndrome of inappropriate secretion of antidiuretic hormone (principal); R53.1 Weakness; M48.02 Spinal stenosis, cervical region; M50.11 Cervical disc disorder with radiculopathy, high cervical region; E11.65 Type 2 diabetes mellitus with hyperglycemia; E03.9 Hypothyroidism, unspecified; E11.22 Type 2 diabetes mellitus with diabetic chronic kidney disease; I12.9 Hypertensive chronic kidney disease with stage 1 through stage 4 chronic kidney disease, or unspecified chronic kidney disease; N18.3 Chronic kidney disease, stage 3 (moderate); K21.9 Gastro-esophageal reflux disease without esophagitis; N40.0 Benign prostatic hyperplasia without lower urinary tract symptoms; F41.8 Other specified anxiety disorders; G89.29 Other chronic pain; E87.5 Hyperkalemia; D63.1 Anemia in chronic kidney disease; D50.9 Iron deficiency anemia, unspecified